=== PATIENT | female | born 1960 | race Caucasian/White ===

== ENCOUNTER 2016-11-20 13:49 | Inpatient (IN) ==
--- NOTE | 2016-11-20 14:01 | Emergency Department Note ---
Disposition Clinical Impression: Ventricular tachycardia Disposition: Admitted As Inpatient Condition: Good General Adult HPI - General Chief complaint: ED Arrhythmia/Palpitations Stated complaint: defibulator activated x 2 Time Seen by Provider: 11/20/16 13:54 Source: EMS - History of Present Illness Pain Scale: 1 - Related Data Home Medications Medication Instructions Recorded Confirmed Dulaglutide [Trulicity] 0.5 mg SQ SA 04/19/16 11/20/16 Metformin HCl [Metformin HCl ER] 1,000 mg PO BID 04/19/16 11/20/16 Aspirin [Lo-Dose Aspirin EC] 81 mg PO DAILY 05/03/16 11/20/16 Ferrous Sulfate [Iron] 325 mg PO DAILY 11/20/16 11/20/16 Previous Rx's Medication Instructions Recorded Furosemide [Lasix] 20 mg PO DAILY #30 tablet 05/09/16 Magnesium Oxide [Mag-Ox] 400 mg PO DAILY #30 tablet 05/09/16 Metoprolol XL (24 HR) Succ [Toprol 50 mg PO DAILY #30 tab.er.24h 05/09/16 Xl] Potassium Chloride [K-Tab ER] 10 meq PO DAILY #30 tablet.er 05/09/16 Amiodarone [Cordarone] 200 mg PO DAILY #7 tablet 09/19/16 Allergies Allergy/AdvReac Type Severity Reaction Status Date / Time No Known Allergies Allergy Verified 09/18/16 21:59 Past Medical History - Past Medical History Medical history: Reports: arthritis, diabetes, GERD, hyperlipidemia, hypertension, SVT, other Surgical history: Reports: cholecystectomy, hysterectomy, pacemaker/AICD, other Psychiatric history: Reports: no psych history PRODUCTION SUPERVISOR TRAINEE history: Reports: no PRODUCTION SUPERVISOR TRAINEE history - Social History Smoking Status: Never smoker Smokeless Tobacco Status: No Alcohol use: Reports: none Drug use: Reports: none Physical Exam - General General appearance: alert Course Vital Signs Temperature 98.0 F 11/20/16 13:53 Pulse Rate 63 11/20/16 13:53 Respiratory Rate 24 11/20/16 13:53 Blood Pressure 122/82 11/20/16 13:53 O2 Sat by Pulse Oximetry 97 11/20/16 13:53 Temperature 98 F 11/20/16 17:13 Pulse Rate 60 11/20/16 18:26 Respiratory Rate 16 11/20/16 17:13 Blood Pressure 118/71 11/20/16 18:26 O2 Sat by Pulse Oximetry 97 11/20/16 17:13 Oxygen Delivery Oxygen Delivery Nasal Cannula Medical Decision Making - Lab Data Result diagrams: 11/20/16 15:08 11/20/16 15:08 Lab Results 11/20/16 11/20/16 11/20/16 Range/Units 15:06 15:08 15:08 WBC 8.3 (4.3-11.1) K/mcL RBC 5.45 H (3.82-4.97) M/mcL Hgb 14.1 (11.5-15.4) g/dL Hct 44.8 (35.3-44.9) % MCV 82.2 L (83.0-100.0) fL MCH 25.9 L (28.0-33.3) pg MCHC 31.5 L (31.6-35.5) g/dL RDW 15.5 H (11.5-14.5) % Plt Count 198 (140-400) K/mcL MPV 11.9 (9.4-12.4) fL Immature Gran % 1.1 (0-4) % Seg Neutrophils % 70.7 % Lymphocytes % 17.7 % Monocytes % 7.2 % Eosinophils % 2.0 % Basophils % 1.3 % Neutrophils # 5.9 (1.6-8.9) K/mcL Lymphocytes # 1.5 (0.6-4.6) K/mcL Monocytes # 0.6 (0.0-1.3) K/mcL Eosinophils # 0.2 (0.0-0.6) K/mcL Basophils # 0.1 (0.0-0.2) K/mcL Sodium 141 (136-145) mEq/L Potassium 4.7 H (3.5-4.5) mEq/L Chloride 108 (98-109) mEq/L Carbon Dioxide 23 (19-29) mEq/L BUN 17 (7-20) mg/dL Creatinine 1.12 H (0.57-1.11) mg/dL Est GFR ( Amer) > 60 (> 60) Est GFR (Non-Af Amer) 50 L (> 60) BUN/Creatinine Ratio 15 (6-26) Glucose 137 H (70-99) mg/dL Calculated Osmolality 296 (280-300) Calcium 9.8 (8.6-10.8) mg/dL Magnesium (1.6-2.6) mg/dL Troponin I (0-0.03) ng/mL B-Natriuretic Peptide 891 H (0-100) pg/mL TSH 4.047 (0.350-4.840) mcIU/mL 11/20/16 11/20/16 Range/Units 15:08 15:08 WBC (4.3-11.1) K/mcL RBC (3.82-4.97) M/mcL Hgb (11.5-15.4) g/dL Hct (35.3-44.9) % MCV (83.0-100.0) fL MCH (28.0-33.3) pg MCHC (31.6-35.5) g/dL RDW (11.5-14.5) % Plt Count (140-400) K/mcL MPV (9.4-12.4) fL Immature Gran % (0-4) % Seg Neutrophils % % Lymphocytes % % Monocytes % % Eosinophils % % Basophils % % Neutrophils # (1.6-8.9) K/mcL Lymphocytes # (0.6-4.6) K/mcL Monocytes # (0.0-1.3) K/mcL Eosinophils # (0.0-0.6) K/mcL Basophils # (0.0-0.2) K/mcL Sodium (136-145) mEq/L Potassium (3.5-4.5) mEq/L Chloride (98-109) mEq/L Carbon Dioxide (19-29) mEq/L BUN (7-20) mg/dL Creatinine (0.57-1.11) mg/dL Est GFR ( Amer) (> 60) Est GFR (Non-Af Amer) (> 60) BUN/Creatinine Ratio (6-26) Glucose (70-99) mg/dL Calculated Osmolality (280-300) Calcium (8.6-10.8) mg/dL Magnesium 1.4 L (1.6-2.6) mg/dL Troponin I 0.03 (0-0.03) ng/mL B-Natriuretic Peptide (0-100) pg/mL TSH (0.350-4.840) mcIU/mL Critical Care Time Critical Care Time: Yes Total Critical Care Time: 30 Attestation: Patient presented after being cardioverted from her AICD. We did receive confirmation from her AICD manufacture that this was V. tach. She did have several runs of nonsustained wide complex tachycardia while on telemetry. This necessitated an amiodarone drip. Call placed to cardiology orthodontic technician Attestation Statement - Attestation Attestation: I examined this patient and my medical decision-making was reviewed with the TOOTH CUTTER/PA/Advanced Practice Nurse/Resident Physician. I agree with the documented findings, disposition and treatment plan as described except to the extent set forth below. [id number] time provided Patient presents by EMS after her AICD fired. She states she felt dizzy prior to this event. By she relates it has been firing increasing frequently recently. She appears distressed. ekg reviewed by me
--- NOTE | 2016-11-20 14:17 | Emergency Department Note ---
Disposition Clinical Impression: Ventricular tachycardia Disposition: Admitted As Inpatient Condition: Good Referrals: Lamonte Lassiter DO [Primary Care Provider] - Forms: ED Satisfaction Letter Arrhythmia/Palpitations HPI - General Chief Complaint: ED Arrhythmia/Palpitations Stated Complaint: defibulator activated x 2 Time Seen by Provider: 11/20/16 13:54 Source: EMS Nursing Notes Reviewed: Yes Vital Signs Reviewed: Yes - History of Present Illness HPI Narrative: 56-year-old female with a history of systolic heart failure, hypertension, type 2 diabetes who has a pacemaker/defibrillator presents to the emergency department after being defibrillated. On she reports being defibrillated twice. Yesterday she was sitting down, relaxing when she suddenly was defibrillated. She states since then she just has not felt right. She was again defibrillated this morning for a total of 4 times. She has felt generally weak with some exertional dyspnea over the last week. She does not have any chest pain or discomfort. Denies any associated nausea, vomiting or diaphoresis. Denies any abdominal pain. Denies any chest pain. Denies any new lower extremity swelling. She apparently spoke with her string laster who recommended she come to the emergency department for evaluation. She reports a history of ventricular fibrillation. - Related Data Home Medications Medication Instructions Recorded Confirmed Dulaglutide [Trulicity] 0.5 mg SQ SA 04/19/16 11/20/16 Metformin HCl [Metformin HCl ER] 1,000 mg PO BID 04/19/16 11/20/16 Aspirin [Lo-Dose Aspirin EC] 81 mg PO DAILY 05/03/16 11/20/16 Ferrous Sulfate [Iron] 325 mg PO DAILY 11/20/16 11/20/16 Previous Rx's Medication Instructions Recorded Furosemide [Lasix] 20 mg PO DAILY #30 tablet 05/09/16 Magnesium Oxide [Mag-Ox] 400 mg PO DAILY #30 tablet 05/09/16 Metoprolol XL (24 HR) Succ [Toprol 50 mg PO DAILY #30 tab.er.24h 05/09/16 Xl] Potassium Chloride [K-Tab ER] 10 meq PO DAILY #30 tablet.er 05/09/16 Amiodarone [Cordarone] 200 mg PO DAILY #7 tablet 09/19/16 Allergies Allergy/AdvReac Type Severity Reaction Status Date / Time No Known Allergies Allergy Verified 09/18/16 21:59 All systems ED: reviewed and negative except as stated. Constitutional: Denies: fever Cardiovascular: Reports: palpitations, dyspnea on exertion. Denies: chest pain Respiratory: Reports: dyspnea. Denies: cough Gastrointestinal: Denies: abdominal pain, nausea, vomiting Musculoskeletal: Denies: back pain, neck pain Neurological: Denies: headache, weakness, numbness Past Medical History - Past Medical History Medical history: Reports: arthritis, diabetes, GERD, hyperlipidemia, hypertension, SVT, other Surgical history: Reports: cholecystectomy, hysterectomy, pacemaker/AICD, other Psychiatric history: Reports: no psych history MEAL ROOM HAND history: Reports: no MEAL ROOM HAND history - Social History Smoking Status: Never smoker Smokeless Tobacco Status: No Alcohol use: Reports: none Drug use: Reports: none Physical Exam General: Well-appearing female, resting, probably in bed, talkative and appropriate Cardiovascular: Irregular rhythm. Systolic murmur. No clicks or gallops. S1, S2 Respiratory: Breath sounds clear bilaterally. No wheezing, rales or rhonchi. No resp distress Abdomen: Soft, nontender. Eyes: conjunctiva clear HENT: No oral mucosal lesions. Moist mucous membranes Neuro: Alert and oriented 3, no motor sensory deficits Musculoskeletal: No lower extremity edema bilaterally. No calf tenderness. Skin: No lesions. No diaphoresis. Normal turgor. Normal color Psych: Appropriate - General General appearance: alert Course Course Narrative: Presents after being defibrillated multiple times. We interrogated her pacemaker and I received a call from [place] and told me she had 2 episodes of ventricular tachycardia with a rate around 220 and was appropriately shocked with return of rhythm. In the emergency Department she is having frequent runs of wide complex tachycardia which I feel represents ventricular tachycardia. She slightly lightheaded. I paged the string laster pending. Patient will likely require amiodarone for V. tach. She already takes amiodarone and has been taking her medications. We spoke with the on-call string laster, Dr. Denise who is comfortable with starting the amiodarone drip. Since she is only taking amiodarone we will not load her. (It should be known that the bolus order was not canceled by myself and the patient received about 10 mL of amiodarone before we stopped and started a drip) After starting the amiodarone her rate decreased down into the 70s, her symptoms resolved and she had far less ectopy. We discussed with the on-call hospitalist, Dr. Anthony to excess for admission. Her troponin is not elevated. Chest x-ray clear. Vital Signs Temperature 98.0 F 11/20/16 13:53 Pulse Rate 63 11/20/16 13:53 Respiratory Rate 24 11/20/16 13:53 Blood Pressure 122/82 11/20/16 13:53 O2 Sat by Pulse Oximetry 97 11/20/16 13:53 Temperature 98.0 F 11/20/16 13:53 Pulse Rate 78 11/20/16 16:00 Respiratory Rate 16 11/20/16 16:00 Blood Pressure 131/92 11/20/16 16:00 O2 Sat by Pulse Oximetry 99 11/20/16 16:00 Oxygen Delivery Oxygen Delivery Nasal Cannula Arrhythmia/Palpitations - Lab Data Result diagrams: 11/20/16 15:08 11/20/16 15:08 Lab Results 11/20/16 11/20/16 11/20/16 Range/Units 15:08 15:08 15:08 WBC 8.3 (4.3-11.1) K/mcL RBC 5.45 H (3.82-4.97) M/mcL Hgb 14.1 (11.5-15.4) g/dL Hct 44.8 (35.3-44.9) % MCV 82.2 L (83.0-100.0) fL MCH 25.9 L (28.0-33.3) pg MCHC 31.5 L (31.6-35.5) g/dL RDW 15.5 H (11.5-14.5) % Plt Count 198 (140-400) K/mcL MPV 11.9 (9.4-12.4) fL Immature Gran % 1.1 (0-4) % Seg Neutrophils % 70.7 % Lymphocytes % 17.7 % Monocytes % 7.2 % Eosinophils % 2.0 % Basophils % 1.3 % Neutrophils # 5.9 (1.6-8.9) K/mcL Lymphocytes # 1.5 (0.6-4.6) K/mcL Monocytes # 0.6 (0.0-1.3) K/mcL Eosinophils # 0.2 (0.0-0.6) K/mcL Basophils # 0.1 (0.0-0.2) K/mcL Sodium 141 (136-145) mEq/L Potassium 4.7 H (3.5-4.5) mEq/L Chloride 108 (98-109) mEq/L Carbon Dioxide 23 (19-29) mEq/L BUN 17 (7-20) mg/dL Creatinine 1.12 H (0.57-1.11) mg/dL Est GFR ( Amer) > 60 (> 60) Est GFR (Non-Af Amer) 50 L (> 60) BUN/Creatinine Ratio 15 (6-26) Glucose 137 H (70-99) mg/dL Calculated Osmolality 296 (280-300) Calcium 9.8 (8.6-10.8) mg/dL Magnesium (1.6-2.6) mg/dL Troponin I 0.03 (0-0.03) ng/mL TSH 4.047 (0.350-4.840) mcIU/mL 11/20/16 Range/Units 15:08 WBC (4.3-11.1) K/mcL RBC (3.82-4.97) M/mcL Hgb (11.5-15.4) g/dL Hct (35.3-44.9) % MCV (83.0-100.0) fL MCH (28.0-33.3) pg MCHC (31.6-35.5) g/dL RDW (11.5-14.5) % Plt Count (140-400) K/mcL MPV (9.4-12.4) fL Immature Gran % (0-4) % Seg Neutrophils % % Lymphocytes % % Monocytes % % Eosinophils % % Basophils % % Neutrophils # (1.6-8.9) K/mcL Lymphocytes # (0.6-4.6) K/mcL Monocytes # (0.0-1.3) K/mcL Eosinophils # (0.0-0.6) K/mcL Basophils # (0.0-0.2) K/mcL Sodium (136-145) mEq/L Potassium (3.5-4.5) mEq/L Chloride (98-109) mEq/L Carbon Dioxide (19-29) mEq/L BUN (7-20) mg/dL Creatinine (0.57-1.11) mg/dL Est GFR ( Amer) (> 60) Est GFR (Non-Af Amer) (> 60) BUN/Creatinine Ratio (6-26) Glucose (70-99) mg/dL Calculated Osmolality (280-300) Calcium (8.6-10.8) mg/dL Magnesium 1.4 L (1.6-2.6) mg/dL Troponin I (0-0.03) ng/mL TSH (0.350-4.840) mcIU/mL - EKG Data EKG results narrative: EKG shows a biventricular paced rhythm with a rate of 85 bpm. She has frequent wide complex ectopic beats in between of the paced rhythm. Previous EKG shows similar pacing/QRS complexes but the frequent ectopy is new.
[2016-11-20] MEDS ORDERED: Amiodarone Premix 150 MG/100 ML BAG IVPB ONE (14:56)
[2016-11-20] MEDS ORDERED: Amiodarone Premix 360 MG/200 ML BAG IVC ONE ×3 (15:13→15:30)
[2016-11-20 15:17] LABS: Basophils # 0.1 K/mcL (0.0-0.2); Basophils % 1.3 %; Eosinophils # 0.2 K/mcL (0.0-0.6); Hematocrit 44.8 % (35.3-44.9); Hemoglobin 14.1 g/dL (11.5-15.4); Immature Granulocytes % 1.1 % (0-4); Lymphocytes # 1.5 K/mcL (0.6-4.6); Lymphocytes % 17.7 %; Mean Corpuscular HGB Conc 31.5 g/dL (31.6-35.5); Mean Corpuscular Hemoglobin 25.9 pg (28.0-33.3); Mean Corpuscular Volume 82.2 fL (83.0-100.0); Mean Platelet Volume 11.9 fL (9.4-12.4); Monocytes # 0.6 K/mcL (0.0-1.3); Monocytes % 7.2 %; Neutrophils # 5.9 K/mcL (1.6-8.9); Platelet Count 198 K/mcL (140-400); Red Blood Count 5.45 M/mcL (3.82-4.97); Red Cell Distribution Width 15.5 % (11.5-14.5); Segmented Neutrophils % 70.7 %
[2016-11-20 15:28] LABS: BUN/Creatinine Ratio 15 (6-26); Blood Urea Nitrogen 17 mg/dL (7-20); Calcium 9.8 mg/dL (8.6-10.8); Carbon Dioxide 23 mEq/L (19-29); Chloride 108 mEq/L (98-109); Glucose 137 mg/dL (70-99); Osmolality,Calculated 296 (280-300); Potassium 4.7 mEq/L (3.5-4.5); Sodium 141 mEq/L (136-145); eGFR For African Americans > 60 (> 60); eGFR For Non-African Americans 50 (> 60)
--- NOTE | 2016-11-20 15:28 | Cardiology History & Physical ---
<ChadHowardRachel L - Last Filed: 11/20/16 15:31> Date of Encounter: 11/20/16 Time of Encounter: 15:00 Assessment and Plan (1) Ventricular tachycardia Current Visit: Yes Status: Acute x2 ICD discharges appropriately for VT. Reports 1 ICD shock last week and nearly 1 shock every other week since Amiodarone dose decreased in September 2016. Increase betablocker to Toprol XL 50 mg in AM and 25 mg in PM. Check electrolytes with Mag. Recommend K >4.0 and Mag >2.0 Reload with IV Amiodarone gtt per protocol--1mg/min x18 hours and then 0.5 mg/ min thereafter. Recommend admission to nursing unit for close observation. Monitor telemetry closely. The patient/plan was discussed with Dr. Denise who agrees with plan as stated above. (2) Nonischemic cardiomyopathy Current Visit: No Status: Acute BiV-ICD implant in May 2016. Most recent LVEF assessment, 30-35% in July 2016. [facility] April 2016--mild, non-obstructive CAD. Appears euvolemic upon exam, mild non-pitting edema to LLE. Reports cold/URI symptoms over the past week. WBC normal. Continue betablocker. May consider addition of ACEi at discharge if BP will tolerate and kidney function stable. Strict I&O, daily weights, Na/Fluid restriction diet. (3) Hypertension Current Visit: Yes Status: Chronic Controlled now, will continue to monitor closely. Continue betablocker. Qualifiers: Hypertension type: essential hypertension Qualified Code(s): I10 - Essential (primary) hypertension History of Present Illness Chief complaint: ICD discharge HPI: Ms. Lopez is a 56 year old female with PMH significant for complete heart block, HTN, and non-ischemic cardiomyopathy s/p Bi-V ICD implant in May 2016 who presents with x2 ICD discharges over the past 24 hours--ICD shock occur typically with rest. Reports palpitations prior to ICD discharge. Reports an ICD discharge every other week since Amiodarone has been decreased to 200 mg daily in September 2016. She reports a 1 week history of URI/cold symptoms. Denies taking any OTC medications or herbal remedies. Denies any recent medication changes. Denies chest pain or discomfort. Device check completed per ED staff--was noted to be appropriately shocking for VT per device report. Recent CV testing includes: TTE 07/20/16: EF 30-35%, global hypokinesis, mild MR TTE 04/20/16: EF 20-25%, global hypokinesis LHC 04/21/16: mild non-obstructive CAD; 40% stenosis Diagonal and 20% mRCA. Past Med Surg Social Fam HX - Past Medical History Attestation: Yes The following information was validated with the patient. Source: patient, old records reviewed Medical history: arthritis, diabetes, GERD, hyperlipidemia, hypertension, SVT, other (Ventricular tachycardia, complete heart block) Psychiatric history: no psych history - Past Surgical History Surgical History: cholecystectomy, hysterectomy, other, AICD (BiV-ICD) - Social History Smoking Status: Never smoker Smokeless Tobacco Status: No Alcohol use: none Drug use: none - Family History Mother Living Status: Hx Family Cardiac Disorders: Yes (CHF, DM) Brother Living Status: Still Living Hx Family Cardiac Disorders: Yes (PCI in 60s) Father Living Status: Hx Family Cardiac Disorders: Yes (HTN) Hx Family Respiratory Disorders: Yes (COPD) Medications and Allergies Dulaglutide [Trulicity] 0.5 mg SQ SA 04/19/16 [History] Metformin HCl [Metformin HCl ER] 1,000 mg PO BID 04/19/16 [History] Aspirin [Lo-Dose Aspirin EC] 81 mg PO DAILY 05/03/16 [History] Furosemide [Lasix] 20 mg PO DAILY #30 tablet 05/09/16 [Rx] Magnesium Oxide [Mag-Ox] 400 mg PO DAILY #30 tablet 05/09/16 [Rx] Metoprolol XL (24 HR) Succ [Toprol Xl] 50 mg PO DAILY #30 tab.er.24h 05/09/16 [ Rx] Potassium Chloride [K-Tab ER] 10 meq PO DAILY #30 tablet.er 05/09/16 [Rx] Amiodarone [Cordarone] 200 mg PO DAILY #7 tablet 09/19/16 [Rx] Ferrous Sulfate [Iron] 325 mg PO DAILY 11/20/16 [History] Allergies No Known Allergies Allergy (Verified 09/18/16 21:59) All Systems Review: A 10-system review of systems was performed and is negative for pertinent findings except as documented above in the HPI. - Cardiovascular Cardiovascular: as per HPI Physical Examination Vital Signs, Last 4 Hours Temp Pulse Resp BP Pulse Ox 11/20/16 14:37 115 18 155/100 98 11/20/16 14:35 97 11/20/16 13:53 98.0 F 63 24 122/82 97 General: Conversant, Other (appears pale) HEENT: Atraumatic, Normocephaly Cardiac: Other (irregularly irregular) Lungs: Normal Breath Sounds Neuro: Alert and responsive Abdomen: Soft Skin: No rashes noted on visualized skin Musculoskeletal: No Chest Wall Tenderness Extremities: Other (mild LLE non-pitting edema. ) Results 11/20/16 15:08 11/20/16 15:08 Lab Results 11/20/16 15:08 WBC 8.3 Hgb 14.1 Hct 44.8 Plt Count 198 Impressions Chest X-Ray 11/20/16 13:58 IMPRESSION: No acute cardiopulmonary disease. D/ / Uriah Porter MD / Uriah Porter MD Interpreting Provider: Uriah Porter MD - Imaging and Cardiology Echo: report reviewed Cardiac cath: report reviewed Other Results: Frequent NSVT 3 beats max - EKG Interpretation EKG results cardiology: personally reviewed <Toan Denise - Last Filed: 11/23/16 08:59> Date of Encounter: 11/23/16 History of Present Illness HPI: Ms. Lopez is a 56 year old female All Systems Review: A 10-system review of systems was performed and is negative for pertinent findings except as documented above in the HPI. Physical Examination Vital Signs, Last 4 Hours Temp Pulse Resp BP Pulse Ox 11/23/16 07:42 97.8 F 71 18 103/70 96 Results 11/21/16 04:19 11/22/16 08:43 Lab Results 11/22/16 08:43 Sodium 138 Potassium 4.5 Chloride 106 Carbon Dioxide 23 BUN 19 Creatinine 1.21 H Glucose 152 H Calcium 8.9 Magnesium 2.0 - Attending Attestation I examined this patient and my medical decision-making was reviewed with the WINDER CONTORT OPERATOR/PA/Advanced Practice Nurse/Resident Physician. I agree with the documented findings, disposition and treatment plan.
[2016-11-20] MEDS: Amiodarone Premix 360 MG/200 ML BAG IVC SCH ×2 (15:38→21:29)
[2016-11-20] MEDS ORDERED: Magnesium Sulfate 1 GM in D5% in Water 100 ML IVPB ONE ×2 (15:39→21:00)
[2016-11-20 15:50] LABS: Thyroid Stimulating Hormone 4.047 mcIU/mL (0.350-4.840)
[2016-11-20] MEDS ORDERED: Naloxone 0.4 MG/ML INJ IVP PRN (15:50)
[2016-11-20] MEDS ORDERED: Ondansetron 4 MG/2 ML VIAL IVP PRN (15:50)
[2016-11-20] MEDS ORDERED: Acetaminophen 325 MG TABLET PO PRN (15:50)
[2016-11-20] MEDS: *HR* Heparin 5,000 UNIT/ML VIAL SQ SCH (21:20)
[2016-11-20] MEDS: Metoprolol XL (24 HR) Succ 25 MG TAB.ER.24H PO SCH (21:21)
--- NOTE | 2016-11-21 00:25 | Event Note ---
Date of Encounter: 11/20/16 Time of Encounter: 20:00 [facility] to [facility]ology. Cardiology evaluated the patient in the emergency department and decided to directly admit the patient to their service. I have discussed our potential involvement in this case with Dr Denise and given Ms. Lopez's paucity of medical problems our consultation was not requested at this time. We would be happy to formally evaluate Ms. Lopez if clinical circumstances require it.
[2016-11-21 05:08] LABS: Basophils # 0.1 K/mcL (0.0-0.2); Basophils % 1.4 %; Eosinophils # 0.3 K/mcL (0.0-0.6); Eosinophils % 3.9 %; Hematocrit 39.3 % (35.3-44.9); Immature Granulocytes % 0.8 % (0-4); Lymphocytes % 25.5 %; Mean Corpuscular HGB Conc 31.8 g/dL (31.6-35.5); Mean Corpuscular Hemoglobin 26.3 pg (28.0-33.3); Mean Corpuscular Volume 82.6 fL (83.0-100.0); Mean Platelet Volume 13.2 fL (9.4-12.4); Monocytes # 0.7 K/mcL (0.0-1.3); Monocytes % 8.5 %; Neutrophils # 4.6 K/mcL (1.6-8.9); Platelet Count 138 K/mcL (140-400); Red Blood Count 4.76 M/mcL (3.82-4.97); Red Cell Distribution Width 15.5 % (11.5-14.5); Segmented Neutrophils % 59.9 %
[2016-11-21 05:11] LABS: Alanine Aminotransferase 14 Units/L (0-55); Albumin/Globulin Ratio 1.1 (1.1-2.2); Alkaline Phosphatase 112 Units/L (38-126); Aspartate Amino Transferase 18 Units/L (5-34); BUN/Creatinine Ratio 15 (6-26); Bilirubin,Total 0.4 mg/dL (0.2-1.2); Blood Urea Nitrogen 16 mg/dL (7-20); Calcium 8.8 mg/dL (8.6-10.8); Carbon Dioxide 21 mEq/L (19-29); Chloride 108 mEq/L (98-109); Globulin 2.7 g/dL (2.4-3.5); Glucose 193 mg/dL (70-99); Osmolality,Calculated 298 (280-300); Potassium 4.1 mEq/L (3.5-4.5); Sodium 141 mEq/L (136-145); Total Protein 5.7 g/dL (6.0-8.3); eGFR For African Americans > 60 (> 60); eGFR For Non-African Americans 53 (> 60)
[2016-11-21 05:33] LABS: Hemoglobin 12.5 g/dL (11.5-15.4)
[2016-11-21] MEDS: *HR* Heparin 5,000 UNIT/ML VIAL SQ SCH ×2 (06:05→17:00)
[2016-11-21] MEDS ORDERED: Furosemide 20 MG TABLET PO PRN (07:18)
[2016-11-21 07:49] LABS: Magnesium 1.6 mg/dL (1.6-2.6)
[2016-11-21] MEDS: Magnesium Oxide 400 MG TABLET PO SCH (07:57)
[2016-11-21] MEDS: *HR* Metformin 500 MG TABLET PO SCH ×2 (07:57→21:25)
[2016-11-21] MEDS: Aspirin Enteric Coated 81 MG Tablet PO SCH (07:57)
[2016-11-21] MEDS: Metoprolol XL (24 HR) Succ 50 MG TAB.ER.24H PO SCH (07:57)
--- NOTE | 2016-11-21 08:51 | Cardiology Progress Note ---
Date of Encounter: 11/21/16 Time of Encounter: 08:00 Assessment and Plan (1) Ventricular tachycardia Current Visit: Yes Status: Acute x2 ICD discharges appropriately for VT. Reports 1 ICD shock last week and nearly 1 shock every other week since Amiodarone dose decreased in September 2016. Increase betablocker to Toprol XL 50 mg in AM and 25 mg in PM. Recommend K >4.0 and Mag >2.0. Replace Mag today. Continue amiodarone 0.5mg/min. Continue to monitor. (2) Nonischemic cardiomyopathy Current Visit: Yes Status: Acute BiV-ICD implant in May 2016. Most recent LVEF assessment, 30-35% in July 2016. [facility] April 2016--mild, non-obstructive CAD. Appears euvolemic upon exam, mild non-pitting edema to LLE. Reports cold/URI symptoms over the past week. WBC normal. Continue betablocker. May consider addition of ACEi at discharge if BP will tolerate and kidney function stable. Strict I&O, daily weights, Na/Fluid restriction diet. (3) Hypertension Current Visit: Yes Status: Chronic Controlled now, will continue to monitor closely. Continue betablocker. Qualifiers: Hypertension type: essential hypertension Qualified Code(s): I10 - Essential (primary) hypertension Discussion w patient/family: The assessment and plan as outlined above was discussed with the patient and/or family members who expressed understanding and agreement. All questions were answered. Thank you for involving us in the care of your patient. Please call with any questions. The patient will be discussed and reviewed with Dr. Denise; changes to be made accordingly. Subjective Principal diagnosis: ICD shock Interval history: Seen and examined--no further shocks or events since admission. Discussed plan with patient. Objective Vital Signs, Last 4 Hours Pulse Resp BP Pulse Ox 11/21/16 06:08 60 16 105/79 97 11/21/16 05:00 59 14 87/56 96 General: Conversant, No Apparent Distress HEENT: Atraumatic, Normocephaly, Mucus Membranes Moist Cardiac: Other (irreguarly irregular) Neuro: Alert and responsive Abdomen: Soft Skin: No rashes noted on visualized skin Musculoskeletal: No Chest Wall Tenderness Extremities: No Edema, Normal Pulses Results 11/21/16 04:19 11/21/16 04:19 Lab Results 11/21/16 11/21/16 04:19 04:19 WBC 7.7 Hgb 12.5 D Hct 39.3 Plt Count 138 L Sodium 141 Potassium 4.1 Chloride 108 Carbon Dioxide 21 BUN 16 Creatinine 1.07 Glucose 193 H Calcium 8.8 Magnesium 1.6 Total Bilirubin 0.4 AST 18 ALT 14 Alkaline Phosphatase 112 Active Medications Acetaminophen (Tylenol) 650 mg PO Q6HR PRN PRN Reason: Mild Pain (1-3) Stop: 05/22/17 15:51 Aspirin (Aspirin Ec) 81 mg PO DAILY [facility] Stop: 05/23/17 09:01 Last Admin: 11/21/16 07:57 Dose: 81 mg Ferrous Sulfate (Ferrous Sulfate) 325 mg PO DAILY [facility] Stop: 05/23/17 09:01 Last Admin: 11/21/16 07:57 Dose: 325 mg Furosemide (Lasix) 20 mg PO DAILY PRN PRN Reason: increased swelling Stop: 05/23/17 09:01 Heparin Sodium (Porcine) (Heparin) 5,000 unit SQ Q12HR [facility] Stop: 05/22/17 18:01 Last Admin: 11/21/16 06:05 Dose: 5,000 unit Amiodarone HCl/Dextrose (Amiodarone 360mg/200ml Drip Premix) 360 mg in 200 mls @ 16.667 mls/hr IVC CONT JAMIE PRN Reason: 0.5 MG/MIN Stop: 05/22/17 15:31 Last Infusion: 11/21/16 07:58 Dose: 0.5 mg/min, 16.667 mls/hr Magnesium Oxide (Mag-Ox) 400 mg PO DAILY [facility] PRN Reason: Protocol Stop: 05/23/17 09:01 Last Admin: 11/21/16 07:57 Dose: 400 mg Metformin HCl (Glucophage) 1,000 mg PO BID [facility] Stop: 05/23/17 09:01 Last Admin: 11/21/16 07:57 Dose: 1,000 mg Metoprolol Succinate (Toprol Xl) 50 mg PO DAILY [facility] Stop: 05/23/17 09:01 Last Admin: 11/21/16 07:57 Dose: 50 mg Metoprolol Succinate (Toprol Xl) 25 mg PO HS [facility] Stop: 05/22/17 21:01 Last Admin: 11/20/16 21:21 Dose: 25 mg Naloxone HCl (Narcan) 0.4 mg IVP Q2MIN PRN PRN Reason: Opioid Reversal Stop: 05/22/17 15:51 Ondansetron HCl (Zofran) 4 mg IVP Q8HR PRN PRN Reason: Nausea And Vomiting Stop: 05/22/17 15:51 Pharmacy Profile Note (Patient Taking Own Medication) 0 each SQ SA JAMIE Stop: 05/29/17 07:19 Potassium Chloride (Potassium Chloride) 10 meq PO DAILY PRN PRN Reason: prn with lasix Stop: 05/23/17 09:01 - Imaging and Cardiology Echo: report reviewed Cardiac cath: report reviewed Other Results: Telemetry reviewed. - EKG Interpretation EKG results cardiology: personally reviewed Consult Discharge Plan - Plan Referrals: Lamonte Lassiter DO [Primary Care Provider] -
[2016-11-21] MEDS ORDERED: Magnesium Sulfate 2 GM in D5% in Water 100 ML IVPB ONE (09:13)
[2016-11-21] MEDS: Amiodarone Premix 360 MG/200 ML BAG IVC SCH ×2 (10:34→21:28)
[2016-11-21] MEDS: Metoprolol XL (24 HR) Succ 25 MG TAB.ER.24H PO SCH (21:25)
[2016-11-22] MEDS: *HR* Heparin 5,000 UNIT/ML VIAL SQ SCH ×2 (06:09→17:55)
[2016-11-22] MEDS: Magnesium Oxide 400 MG TABLET PO SCH ×2 (08:39→21:12)
[2016-11-22] MEDS: *HR* Metformin 500 MG TABLET PO SCH ×2 (08:39→21:16)
[2016-11-22] MEDS: Aspirin Enteric Coated 81 MG Tablet PO SCH (08:39)
[2016-11-22] MEDS: Metoprolol XL (24 HR) Succ 50 MG TAB.ER.24H PO SCH (08:39)
[2016-11-22 09:06] LABS: Calcium 8.9 mg/dL (8.6-10.8); Potassium 4.5 mEq/L (3.5-4.5)
[2016-11-22] MEDS: Amiodarone Premix 360 MG/200 ML BAG IVC SCH ×2 (10:03→21:12)
--- NOTE | 2016-11-22 10:11 | Cardiology Progress Note ---
Date of Encounter: 11/22/16 Time of Encounter: 09:40 Assessment and Plan (1) Ventricular tachycardia Current Visit: Yes Status: Acute x2 ICD discharges appropriately for VT. Reports 1 ICD shock last week and nearly 1 shock every other week since Amiodarone dose decreased in September 2016. Increase betablocker to Toprol XL 50 mg in AM and 25 mg in PM. Recommend K >4.0 and Mag >2.0. Continue amiodarone 0.5mg/min. Recheck TTE today. Will add aldactone. Prior CV testing includes: TTE 07/20/16: EF 30-35%, global hypokinesis, mild MR TTE 04/20/16: EF 20-25%, global hypokinesis C 04/21/16: mild non-obstructive CAD; 40% stenosis Diagonal and 20% mRCA. (2) Nonischemic cardiomyopathy Current Visit: Yes Status: Acute BiV-ICD implant in May 2016. Most recent LVEF assessment, 30-35% in July 2016. [facility] April 2016--mild, non-obstructive CAD. Appears euvolemic upon exam, mild non-pitting edema to LLE. Reports cold/URI symptoms over the past week. WBC normal. Continue betablocker. May consider addition of ACEi at discharge if BP will tolerate and kidney function stable. Strict I&O, daily weights, Na/Fluid restriction diet. (3) Hypertension Current Visit: Yes Status: Chronic Controlled now, will continue to monitor closely. Continue betablocker. Qualifiers: Hypertension type: essential hypertension Qualified Code(s): I10 - Essential (primary) hypertension Discussion w patient/family: The assessment and plan as outlined above was discussed with the patient and/or family members who expressed understanding and agreement. All questions were answered. Thank you for involving us in the care of your patient. Please call with any questions. The patient will be discussed and reviewed with Dr. Harding; changes to be made accordingly. Subjective Principal diagnosis: ICD shock Interval history: Seen and examined with Dr. Harding Denies recurrent ICD shocks since admission. Reports few brief episodes of shortness of breath overnight, lasted only seconds. Denies chest pain or discomfort. Objective Vital Signs, Last 4 Hours Temp Pulse Resp BP Pulse Ox 11/22/16 08:42 60 11/22/16 07:19 97.8 F 73 16 106/79 96 General: Conversant, No Apparent Distress, Other (pale) HEENT: Atraumatic, Normocephaly Cardiac: Reg Rate and Rhythm, Normal S1 and S2 Lungs: Normal Breath Sounds Neuro: Alert and responsive Abdomen: Soft Skin: No rashes noted on visualized skin Musculoskeletal: No Chest Wall Tenderness Extremities: No Edema, Normal Pulses Results 11/21/16 04:19 11/22/16 08:43 Lab Results 11/22/16 08:43 Sodium 138 Potassium 4.5 Chloride 106 Carbon Dioxide 23 BUN 19 Creatinine 1.21 H Glucose 152 H Calcium 8.9 Magnesium 2.0 Active Medications Acetaminophen (Tylenol) 650 mg PO Q6HR PRN PRN Reason: Mild Pain (1-3) Stop: 05/22/17 15:51 Aspirin (Aspirin Ec) 81 mg PO DAILY [facility] Stop: 05/23/17 09:01 Last Admin: 11/22/16 08:39 Dose: 81 mg Ferrous Sulfate (Ferrous Sulfate) 325 mg PO DAILY [facility] Stop: 05/23/17 09:01 Last Admin: 11/22/16 08:39 Dose: 325 mg Furosemide (Lasix) 20 mg PO DAILY PRN PRN Reason: increased swelling Stop: 05/23/17 09:01 Heparin Sodium (Porcine) (Heparin) 5,000 unit SQ Q12HR [facility] Stop: 05/22/17 18:01 Last Admin: 11/22/16 06:09 Dose: 5,000 unit Amiodarone HCl/Dextrose (Amiodarone 360mg/200ml Drip Premix) 360 mg in 200 mls @ 16.667 mls/hr IVC CONT [facility] PRN Reason: 0.5 MG/MIN Stop: 05/22/17 15:31 Last Admin: 11/22/16 10:03 Dose: 0.5 mg/min, 16.667 mls/hr Magnesium Oxide (Mag-Ox) 400 mg PO BID [facility] PRN Reason: Protocol Stop: 05/24/17 21:01 Metformin HCl (Glucophage) 1,000 mg PO BID [facility] Stop: 05/23/17 09:01 Last Admin: 11/22/16 08:39 Dose: 1,000 mg Metoprolol Succinate (Toprol Xl) 50 mg PO DAILY [facility] Stop: 05/23/17 09:01 Last Admin: 11/22/16 08:39 Dose: 50 mg Metoprolol Succinate (Toprol Xl) 25 mg PO HS JAMIE Stop: 05/22/17 21:01 Last Admin: 11/21/16 21:25 Dose: 25 mg Naloxone HCl (Narcan) 0.4 mg IVP Q2MIN PRN PRN Reason: Opioid Reversal Stop: 05/22/17 15:51 Ondansetron HCl (Zofran) 4 mg IVP Q8HR PRN PRN Reason: Nausea And Vomiting Stop: 05/22/17 15:51 Pharmacy Profile Note (Patient Taking Own Medication) 0 each SQ SA JAMIE Stop: 05/29/17 07:19 Potassium Chloride (Potassium Chloride) 10 meq PO DAILY PRN PRN Reason: prn with lasix Stop: 05/23/17 09:01 - Imaging and Cardiology Echo: pending, report reviewed Cardiac cath: report reviewed Other Results: Telemetry reviewed; avg HR=63 paced. - EKG Interpretation EKG results cardiology: personally reviewed Consult Discharge Plan - Plan Referrals: aLmonte Lassiter DO [Primary Care Provider] -
[2016-11-22] MEDS: Spironolactone 25 MG TABLET PO SCH (13:06)
[2016-11-22] MEDS: Metoprolol XL (24 HR) Succ 25 MG TAB.ER.24H PO SCH (21:12)
[2016-11-23] MEDS: *HR* Heparin 5,000 UNIT/ML VIAL SQ SCH ×2 (04:43→17:49)
--- NOTE | 2016-11-23 06:14 | Electrocardiograph Report ---
[address] [address] Test Date: 2016-11-20 Pat Name: Cecy Lopez Department: 104 Room: 2N04 Gender: F [employer]: : 1960 Requested By: Eder Owens Order Number: [id number] Reading MD: Joe Jones MD Measurements Intervals [place] Rate: 85 P: MI: 0 QRS: -89 QRSD: 136 T: 81 QT: 392 QTc: 435 Interpretive Statements DEMAND AV PACING WITH INTERPOLATED PVCS OR ABERRANTLY CONDUCTED COMPLEXES Electronically Signed On 11-23-2016 6:13:10 EST by Joe Jones MD
[2016-11-23] MEDS: Spironolactone 25 MG TABLET PO SCH (08:52)
[2016-11-23] MEDS: Aspirin Enteric Coated 81 MG Tablet PO SCH (08:52)
[2016-11-23] MEDS: Amiodarone Premix 360 MG/200 ML BAG IVC SCH (08:52)
[2016-11-23] MEDS: Magnesium Oxide 400 MG TABLET PO SCH ×2 (08:53→20:26)
[2016-11-23] MEDS: *HR* Metformin 500 MG TABLET PO SCH ×2 (08:53→20:27)
[2016-11-23] MEDS: Metoprolol XL (24 HR) Succ 50 MG TAB.ER.24H PO SCH ×2 (08:53→20:26)
--- NOTE | 2016-11-23 10:51 | ECHO - Doppler Report ---
Echocardiogram Name: Cecy Lopez Date of Study: 11/22/2016 Date: 1960 Ht: 65.0 in Medical Record#: [id number] Age: 56 Wt: 156.0 lb Gender: Female BSA: 1.78 Order #: [id number] Location: [facility] Room #: 2N04 Reading Physician: Tona Denise DO Screen Vent Binder: Tisha Patel RDCS Ordering Physician: Rachel Bonilla CNP Primary Physician: Lamonte Lassiter DO Indications: Ventricular Tachycardia Impressions: LVEF 20%. Severe global LV systolic dysfunction. Regional variations were not well visualized. Left ventricle is mildly dilated. There is evidence of mild diastolic dysfunction of the left ventricle. Normal right ventricular size and function. Mild-moderate mitral regurgitation. Moderate tricuspid regurgitation. TR gradient may be underestimated. Unable to estimate RVSP. Left Ventricular Wall Motion: Rest Echo Findings The apex, apical inferior, mid inferior, basal inferior, apical anterior, mid anterior, basal anterior, apical septal, mid inferior septal, basal inferior septal, apical lateral, mid anterior lateral, basal anterior lateral, mid anterior septal, mid inferior lateral, basal anterior septal and basal inferior lateral avina were hypokinetic. Findings: Study Quality * Technically adequate exam. Left Atrium * Moderately dilated left atrium. Mitral Valve * Normal mitral valve structure. * No mitral stenosis. * Mild-moderate mitral regurgitation. ECG Findings * Sinus bradycardia. Intermittent pacing. Left Ventricle * LVEF 20%. * Mildly dilated left ventricle. * Mild left ventricular diastolic dysfunction. Tricuspid Valve * Tricuspid valve not well visualized. * Moderate tricuspid regurgitation. * TR gradient may be underestimated. Aortic Valve * Trileaflet aortic valve. * Normal aortic valve structure. * No aortic stenosis. * Trace aortic regurgitation. Pulmonic Valve * Pulmonic valve is not well visualized. * No pulmonic stenosis. * No pulmonic regurgitation. Pulmonary Artery * Pulmonary artery not well visualized. Right Atrium * Normal right atrial size. Right Ventricle * RV is normal in size with normal function. Interatrial Septum * Interatrial septum not well evaluated. IVC * The IVC is not well evaluated. Pericardium * There is no pericardial effusion present. Aorta * Normally sized aortic root. History Hypertension Diabetes Hypercholesteremia Family History of CAD Congestive Heart Failure Pacer/ICD Implant 07/20/2016 a Previous Echo was performed. Measurements: BP: 100/ 67 2D Normal Values IVSd: .74 cm 0.6 - 1.0 cm LVIDd: 5.60 cm 3.7 - 5.6 cm LVPWd: .89 cm 0.6 - 1.1 cm LVIDs: 5.43 cm 1.5 - 3.6 cm AO: 2.60 cm < 4.0 cm LA: 3.90 cm 2.0 - 4.0cm %FS: 9.20 cm >25 % LVOT Diam: 2.20 cm LA volume: 55 Mitral Valve Peak E:.55 m/sec Peak A:.69 m/sec E/A Ratio:0.8 Peak E' Lat Simone:4.1 cm/s Peak E' Med Simone:3.73 cm/s E/E' Lat Ratio:13.5 E/E' Med Ratio:14.8 Aortic Valve AI pressure Half-time: 516.00 msec Tricuspid Valve TV Regurg Peak Grad: 25.00mmHg TV Regurg Peak Simone: 2.48m/sec Updated by Tona Denise on 11/23/2016 10:44:59 AM electronically signed on 11/23/2016 10:46:55 AM with status of Final Wall Motion Nunes: 1=Normal, 2=Hypokinesis, 3=Akinesis, 4=Dyskinesis, 5=Aneurysmal, 6=Hyperkinetic, X=Not Visualized (Blank)=Missing
--- NOTE | 2016-11-23 11:56 | Cardiology Progress Note ---
Date of Encounter: 11/23/16 Time of Encounter: 11:00 Assessment and Plan (1) Ventricular tachycardia Current Visit: Yes Status: Acute x2 ICD discharges appropriately for VT. Reports 1 ICD shock last week and nearly 1 shock every other week since Amiodarone dose decreased in September 2016. Increase betablocker to Toprol XL 50 mg BID. Recommend K >4.0 and Mag >2.0. Will stop amiodarone gtt, will give 400 mg BID today, and then 400 mg daily starting tomororw. Continue aldactone. Reviewed TTE images with Dr. Harding; EF 10%, reduced from prior exam. Anticipate outpatient referral to [facility]. If symptoms continue to be stable, anticipate discharge in AM. Encouraged to ambulate in hallways. Prior CV testing includes: TTE 07/20/16: EF 30-35%, global hypokinesis, mild MR TTE 04/20/16: EF 20-25%, global hypokinesis [facility] 04/21/16: mild non-obstructive CAD; 40% stenosis Diagonal and 20% mRCA. (2) Nonischemic cardiomyopathy Current Visit: Yes Status: Acute BiV-ICD implant in May 2016. Most recent LVEF assessment, 30-35% in July 2016. [facility] April 2016--mild, non-obstructive CAD. Appears euvolemic upon exam, mild non-pitting edema to LLE. Reports cold/URI symptoms over the past week. WBC normal. Continue betablocker. May consider addition of ACEi at discharge if BP will tolerate and kidney function stable. Strict I&O, daily weights, Na/Fluid restriction diet. (3) Hypertension Current Visit: Yes Status: Chronic Controlled now, will continue to monitor closely. Continue betablocker. Qualifiers: Hypertension type: essential hypertension Qualified Code(s): I10 - Essential (primary) hypertension Discussion w patient/family: The assessment and plan as outlined above was discussed with the patient and/or family members who expressed understanding and agreement. All questions were answered. Thank you for involving us in the care of your patient. Please call with any questions. The patient will be discussed and reviewed with Dr. Harding; changes to be made accordingly. Subjective Principal diagnosis: ICD shock Interval history: Seen and examined with Dr. Harding Denies recurrent ICD shocks since admission. Reports few brief episodes of shortness of breath overnight, lasted only seconds. Denies chest pain or discomfort. Long discussion with patient today regarding plan. Objective Vital Signs, Last 4 Hours Temp Pulse Resp BP Pulse Ox 11/23/16 11:21 98.0 F 68 18 123/90 99 11/23/16 11:13 63 11/23/16 08:59 59 General: Conversant, No Apparent Distress HEENT: Atraumatic, Normocephaly, Mucus Membranes Moist Cardiac: Reg Rate and Rhythm, Normal S1 and S2 Lungs: Normal Breath Sounds Neuro: Alert and responsive Abdomen: Soft Skin: No rashes noted on visualized skin Musculoskeletal: No Chest Wall Tenderness Extremities: No Edema, Normal Pulses Results 11/21/16 04:19 11/22/16 08:43 - Imaging and Cardiology Echo: report reviewed Other Results: Telemetry reviewed; no NSVT noted. - EKG Interpretation EKG results cardiology: personally reviewed Consult Discharge Plan - Plan Referrals: Lamonte Lassiter DO [Primary Care Provider] - 11/30/16 10:00 am Rachel Bonilla, TANK COOPER [Partnered Physician] - (they make their own appointments now, will either call us or call patient at home)
[2016-11-23] MEDS: *HR* Amiodarone 200 MG TABLET PO SCH ×2 (12:06→20:26)
[2016-11-24 05:04] LABS: BUN/Creatinine Ratio 19 (6-26); Blood Urea Nitrogen 21 mg/dL (7-20); Calcium 9.1 mg/dL (8.6-10.8); Carbon Dioxide 22 mEq/L (19-29); Chloride 107 mEq/L (98-109); Glucose 134 mg/dL (70-99); Magnesium 1.5 mg/dL (1.6-2.6); Osmolality,Calculated 289 (280-300); Potassium 4.7 mEq/L (3.5-4.5); Sodium 137 mEq/L (136-145); eGFR For African Americans > 60 (> 60); eGFR For Non-African Americans 50 (> 60)
[2016-11-24] MEDS: *HR* Heparin 5,000 UNIT/ML VIAL SQ SCH (06:29)
[2016-11-24 07:25] VITALS: BP 106/75
[2016-11-24] MEDS ORDERED: Magnesium Sulfate 2 GM in D5% in Water 100 ML IVPB ONE (08:19)
[2016-11-24] MEDS: *HR* Metformin 500 MG TABLET PO SCH (08:22)
[2016-11-24] MEDS: Magnesium Oxide 400 MG TABLET PO SCH (08:22)
[2016-11-24] MEDS: Metoprolol XL (24 HR) Succ 50 MG TAB.ER.24H PO SCH (08:22)
[2016-11-24] MEDS: Spironolactone 25 MG TABLET PO SCH (08:22)
[2016-11-24] MEDS: Aspirin Enteric Coated 81 MG Tablet PO SCH (08:22)
--- NOTE | 2016-11-24 09:49 | Discharge Summary ---
Date of Encounter: 11/24/16 Time of Encounter: 08:00 - Discharge Diagnosis (1) Ventricular tachycardia Priority: Primary Status: Acute (2) Nonischemic cardiomyopathy Priority: Primary Status: Acute (3) Hypertension Priority: Secondary Status: Chronic Qualifiers: Hypertension type: essential hypertension Qualified Code(s): I10 - Essential (primary) hypertension - Discharge Medications Prescriptions: Amiodarone [Cordarone] 400 mg PO DAILY #30 tablet Magnesium Oxide [Mag-Ox] 400 mg PO BID #30 tablet Metoprolol XL (24 HR) Succ [Toprol Xl] 50 mg PO BID #60 tab.er.24h Spironolactone [Aldactone] 12.5 mg PO DAILY #30 tablet Home Medications: Dulaglutide [Trulicity] 0.5 mg SQ SA 04/19/16 [History] Metformin HCl [Metformin HCl ER] 1,000 mg PO BID 04/19/16 [History] Aspirin [Lo-Dose Aspirin EC] 81 mg PO DAILY 05/03/16 [History] Furosemide [Lasix] 20 mg PO DAILY #30 tablet 05/09/16 [Rx] Potassium Chloride [K-Tab ER] 10 meq PO DAILY #30 tablet.er 05/09/16 [Rx] Ferrous Sulfate [Iron] 325 mg PO DAILY 11/20/16 [History] Amiodarone [Cordarone] 400 mg PO DAILY #30 tablet 11/24/16 [Rx] Magnesium Oxide [Mag-Ox] 400 mg PO BID #30 tablet 11/24/16 [Rx] Metoprolol XL (24 HR) Succ [Toprol Xl] 50 mg PO BID #60 tab.er.24h 11/24/16 [Rx] Spironolactone [Aldactone] 12.5 mg PO DAILY #30 tablet 11/24/16 [Rx] Allergies/Adverse Reactions: Allergies No Known Allergies Allergy (Verified 09/18/16 21:59) Procedures/tests Complete & Pending: Procedures Performed prior 72 hours Category Date Time Status EV echocardiogram Routine Y 11/22/16 10:06 Completed Date of admission: 11/20/16 16:20 Primary care physician: Lamonte Lassiter Discharging clinician: Rachel Bonilla Anticipated date of discharge: 11/24/16 - Patient Status Disposition: Home, Self-Care Condition: Good Functional capacity at discharge: independent ambulation Overall status at discharge: patient is progressing back to baseline - Discharge Instructions Instructions: Spironolactone (By mouth), Amiodarone (By mouth), Heart Failure ( DC) Follow Up With: Lamonte Lassiter DO [Primary Care Provider] - 11/30/16 10:00 am Rachel Bonilla, SAJAN [Partnered Physician] - () Nikolas Simon DO [Partnered Physician] - 12/02/16 12:15 pm - Diet and Activity Activity: resume usual activities as tolerated, other (No driving until seen by Cardiology at follow-up. ) Diet: low salt diet, other (2L fluid restriction) - Hospital Course Hospital course: Ms. Lopez is a 56 year old female who presented to the ED with recurrent ICD shocks; device check showed appropriate shock for ICD. Reported increase in ICD discharge since Amiodarone was decreased as outpatient to 200 mg daily. She was re-loaded with IV amiodarone. She will be discharged home on 400 mg oral amiodarone daily. Electrolytes were repleted. Betablocker was increased to 50 mg Toprol XL BID and was started on low dose of aldactone for worsening heart failure. Mag ox increased to 400 mg BID d/t chronic hypomagnesia (? s/p gastric bypass). TTE was repeated and showed a LVEF of 20%, prior 30-35%. She [facility] likely [facility]. She will obtain BMP and mag in 1 week as outpatient. She will follow-up with Dr. Simon on 12/02/16 at 12:15 PM. She has been up and ambulating in room and hallways without symptoms or recurrent ICD shocks. All questions and concerns were addressed; she is being prepped for discharge to home in stable condition. - Time Spent with Patient Total time spent providing and/or coordinating discharge services: Greater than 30 minutes Specific discharge activities: Increase activity as tolerated. No driving until seen by Cardiology as outpatient. Physical Examination Vital Signs, Last 4 Hours Temp Pulse Resp BP Pulse Ox 11/24/16 07:20 98.0 F 65 18 106/75 96 General: Conversant, No Apparent Distress HEENT: Atraumatic, Normocephaly, Mucus Membranes Moist Cardiac: Reg Rate and Rhythm, Normal S1 and S2 Lungs: Normal Breath Sounds Neuro: Alert and responsive Abdomen: Soft Skin: No rashes noted on visualized skin Musculoskeletal: No Chest Wall Tenderness Extremities: No Edema, Normal Pulses
[2016-11-24] MEDS ORDERED: *HR* Amiodarone 200 MG TABLET PO SCH (10:00)
[2016-11-27] MEDS ORDERED: DULAGLUTIDE 0.5 MG SQ SCH (07:18)
== END 2016-11-24 10:42 | disposition home or self-care (01) | DRG 309 ==
LOC: EMEROO 13:49 → 2NNU 16:20
PROVIDERS: ADMIT Internal Medicine; ATTEND Internal Medicine

== ENCOUNTER 2017-05-27 08:57 | Inpatient (IN) ==
--- NOTE | 2017-05-27 09:55 | Emergency Department Note ---
Addendum entered and electronically signed by Glenna Higginbotham DO 05/27/17 14:51 : During ED stay, patient had multiple runs of v-tach non-sustained and one sustained that her defib shocked back into sinus rhythm. The interrogator showed V-tach as the cause this morning and Tuesday. Original Note: Disposition Clinical Impression: V-tach UTI (urinary tract infection) Qualifiers: Urinary tract infection type: site unspecified Hematuria presence: without hematuria Qualified Code(s): N39.0 - Urinary tract infection, site not specified Disposition: Admitted As Inpatient Condition: Good Referrals: Lamonte Lassiter DO [Primary Care Provider] - 06/07/17 10:30 am Arrhythmia/Palpitations HPI - General Chief Complaint: ED Arrhythmia/Palpitations Stated Complaint: defib fired-this am and 05/22/17 Time Seen by Provider: 05/27/17 09:16 Source: patient Limitations: no limitations Vital Signs Reviewed: Yes - History of Present Illness HPI Narrative: Patient is a 56-year-old female with a past medical history of complete heart block and a pacemaker/defibrillator placed in 2015 presented to the ED this morning after her defibrillator depolarized. On Tuesday at 2:30 AM she was asleep in her defibrillator depolarized she did not seek medical care at this time. This morning at 6:46 AM she began to have shortness of breath and tightness in her chest and then her defibrillator went off she fell to the ground in the kitchen and hit her head. She called her page designer this morning they said they come in to the ED. She is a [employer] defibrillator. Her last echo was 11/22/16 which showed an EF of 20% and left ventricular systolic dysfunction. She is on the heart transplant list at [facility] with Dr. Gloria. She is on continuous dobutamine 2.5 mg per hr and Amiodarone 400mg QD. - Related Data Home Medications Medication Instructions Recorded Confirmed Dulaglutide [Trulicity] 0.5 mg SQ SA 04/19/16 05/27/17 Aspirin [Lo-Dose Aspirin EC] 81 mg PO DAILY MDD ON HOLD 05/03/16 05/27/17 Ferrous Sulfate [Iron] 325 mg PO DAILY 11/20/16 05/27/17 Furosemide [Lasix] 20 mg PO DAILY PRN 05/27/17 05/27/17 Lisinopril [Zestril] 5 mg PO DAILY 05/27/17 05/27/17 Potassium Chloride [K-Tab ER] 10 meq PO DAILY PRN 05/27/17 05/27/17 Simvastatin [Zocor] 10 mg PO DAILY 05/27/17 05/27/17 Previous Rx's Medication Instructions Recorded Amiodarone [Cordarone] 400 mg PO DAILY #30 tablet 11/24/16 Magnesium Oxide [Mag-Ox] 400 mg PO BID #30 tablet 11/24/16 Allergies Allergy/AdvReac Type Severity Reaction Status Date / Time No Known Allergies Allergy Verified 09/18/16 21:59 Review of Systems: ROS: constitutional: Denies fever, chills, weakness, dizziness HEENT: denies Headaches, changes in vision Resp: denies shortness of breath, coughing CV: Denies chest pain, lower extremity edema GI: Denies nausea, vomiting, diarrhea, constipation, hematochezia, abdominal pain Skin: Denies rashes, new lesions All systems ED: reviewed and negative except as stated. Review of Systems: As Per HPI Past Medical History - Past Medical History Medical history: Reports: arthritis, diabetes, GERD, hyperlipidemia, hypertension, SVT Surgical history: Reports: cholecystectomy, hysterectomy, pacemaker/AICD, other Psychiatric history: Reports: no psych history INSTALLATION & MAINTENANCE EXECUTIVE history: Reports: no INSTALLATION & MAINTENANCE EXECUTIVE history - Social History Smoking Status: Never smoker Smokeless Tobacco Status: No Alcohol use: Reports: none Drug use: Reports: none Physical Exam Constitutional: Alert, in no acute distress, well nourished, well developed. Head: flucuant about 3cm by 4cm on posterior parietal region, Heart: regular rate and rhythm, no murmurs Lungs: Clear to auscultation, no wheezes, rales, or rhonchi Abdomen: Soft, nondistended, nontender, and no masses palpable, bowel sounds present and normal, no guarding or rigidity. Extremities: R extremity will mild bruising on dorsal forearm, No clubbing, cyanosis, or edema, radial pulse +2/4, capillary refill <2sec. Skin: Skin warm and dry, no lesions, no rashes, no jaundice Neurologic: Cranial nerves II through XII grossly intact, no focal deficits, strength within normal limits in all extremities Psych: Cooperative with exam, good eye contact, cognitive function intact, judgment good insight good, speech clear, thought process logical, and goal directed - General Limitations: no limitations General appearance: alert, in no apparent distress Course Course Narrative: Cardiac workup was obtained. Electrolytes were within normal limits and troponin was negative. Patient's platelets are low at 124 but patient says they are chronically low. Chest x-ray showed no acute process. Head CT showed negative for osseous or intracranial abnormalities. UA shows a UTI. Patient's page designer Alfred was called for consultation and would like to admit her for observation and would like to put her on an amiodarone protocol and will consult. [facility] Dr. Oquendo who agreed that observation at [facility] is recommended. He suggests to put her on Amiodarone 400mg BID for a couple of days. He says that she should follow-up with the transplant clinic early next week. He says that with her current condition that she does not qualify for increasing her status for transplant but if her condition changes that we could check back with them. Talked to Dr. Redding, and she accepted the admission. Vital Signs Temperature 97.6 F 05/27/17 08:58 Pulse Rate 70 05/27/17 08:58 Respiratory Rate 16 05/27/17 08:58 Blood Pressure 117/68 05/27/17 08:58 O2 Sat by Pulse Oximetry 99 05/27/17 08:58 Temperature 97.6 F 05/27/17 08:58 Pulse Rate 75 05/27/17 13:30 Respiratory Rate 20 05/27/17 13:30 Blood Pressure 105/67 05/27/17 13:30 O2 Sat by Pulse Oximetry 99 05/27/17 13:30 Oxygen Delivery Oxygen Delivery Room Air Arrhythmia/Palpitations - Medical Records Medical records reviewed: Yes I reviewed the patient's medical records. - Lab Data Lab results reviewed: Yes I reviewed the patient's lab results. Lab results narrative: All Lab Results (24 Hours) 05/27/17 05/27/17 05/27/17 Range/Units 11:14 11:14 11:14 WBC 9.8 (4.3-11.1) K/mcL RBC 4.35 (3.82-4.97) M/mcL Hgb 12.2 (11.5-15.4) g/dL Hct 38.0 (35.3-44.9) % MCV 87.4 (83.0-100.0) fL MCH 28.0 (28.0-33.3) pg MCHC 32.1 (31.6-35.5) g/dL RDW 14.4 (11.5-14.5) % Plt Count 124 L (140-400) K/mcL MPV 11.5 (9.4-12.4) fL Sodium 138 (136-145) mEq/L Potassium 4.1 (3.5-4.5) mEq/L Chloride 107 (98-109) mEq/L Carbon Dioxide 24 (19-29) mEq/L BUN 18 (7-20) mg/dL Creatinine 1.04 (0.57-1.11) mg/dL Est GFR ( Amer) > 60 (> 60) Est GFR (Non-Af Amer) 54 L (> 60) BUN/Creatinine Ratio 17 (6-26) Glucose 102 H (70-99) mg/dL Calculated Osmolality 288 (280-300) Calcium 8.6 (8.6-10.8) mg/dL Magnesium 1.8 (1.6-2.6) mg/dL Troponin I 0.01 (0-0.03) ng/mL Urine Color (Yellow) Urine Clarity (Clear) Urine pH (5.0-8.0) pH Units Ur Specific [place] (1.010-1.025) Urine Protein (Neg-Trace) mg/dL Urine Glucose (UA) (Normal) mg/dL Urine Ketones (Negative) mg/dL Urine Blood (Negative) Urine Nitrite (Negative) Urine Bilirubin (Negative) Urine Urobilinogen (Normal) mg/dL Ur Leukocyte Esterase (Negative) Urine Microscopic RBC (0-3) per hpf Urine Microscopic WBC (0-3) per hpf Ur Squamous Epith Cells (None-Few) per lpf Urine Bacteria (None-Few) per hpf Hyaline Casts (None-Few) per lpf Ur Culture Indicated? (NO) 05/27/17 Range/Units 11:21 WBC (4.3-11.1) K/mcL RBC (3.82-4.97) M/mcL Hgb (11.5-15.4) g/dL Hct (35.3-44.9) % MCV (83.0-100.0) fL MCH (28.0-33.3) pg MCHC (31.6-35.5) g/dL RDW (11.5-14.5) % Plt Count (140-400) K/mcL MPV (9.4-12.4) fL Sodium (136-145) mEq/L Potassium (3.5-4.5) mEq/L Chloride (98-109) mEq/L Carbon Dioxide (19-29) mEq/L BUN (7-20) mg/dL Creatinine (0.57-1.11) mg/dL Est GFR ( Amer) (> 60) Est GFR (Non-Af Amer) (> 60) BUN/Creatinine Ratio (6-26) Glucose (70-99) mg/dL Calculated Osmolality (280-300) Calcium (8.6-10.8) mg/dL Magnesium (1.6-2.6) mg/dL Troponin I (0-0.03) ng/mL Urine Color Yellow (Yellow) Urine Clarity Clear (Clear) Urine pH 6.5 (5.0-8.0) pH Units Ur Specific [place] 1.013 (1.010-1.025) Urine Protein Negative (Neg-Trace) mg/dL Urine Glucose (UA) Normal (Normal) mg/dL Urine Ketones Negative (Negative) mg/dL Urine Blood Negative (Negative) Urine Nitrite Positive A (Negative) Urine Bilirubin Negative (Negative) Urine Urobilinogen Normal (Normal) mg/dL Ur Leukocyte Esterase Trace H (Negative) Urine Microscopic RBC 5-15 H (0-3) per hpf Urine Microscopic WBC 5-15 H (0-3) per hpf Ur Squamous Epith Cells Many H (None-Few) per lpf Urine Bacteria Many H (None-Few) per hpf Hyaline Casts None Seen (None-Few) per lpf Ur Culture Indicated? YES A (NO) Result diagrams: 05/27/17 11:14 05/27/17 11:14 Lab Results 05/27/17 05/27/17 05/27/17 Range/Units 11:14 11:14 11:14 WBC 9.8 (4.3-11.1) K/mcL RBC 4.35 (3.82-4.97) M/mcL Hgb 12.2 (11.5-15.4) g/dL Hct 38.0 (35.3-44.9) % MCV 87.4 (83.0-100.0) fL MCH 28.0 (28.0-33.3) pg MCHC 32.1 (31.6-35.5) g/dL RDW 14.4 (11.5-14.5) % Plt Count 124 L (140-400) K/mcL MPV 11.5 (9.4-12.4) fL Sodium 138 (136-145) mEq/L Potassium 4.1 (3.5-4.5) mEq/L Chloride 107 (98-109) mEq/L Carbon Dioxide 24 (19-29) mEq/L BUN 18 (7-20) mg/dL Creatinine 1.04 (0.57-1.11) mg/dL Est GFR ( Amer) > 60 (> 60) Est GFR (Non-Af Amer) 54 L (> 60) BUN/Creatinine Ratio 17 (6-26) Glucose 102 H (70-99) mg/dL Calculated Osmolality 288 (280-300) Calcium 8.6 (8.6-10.8) mg/dL Magnesium 1.8 (1.6-2.6) mg/dL Troponin I 0.01 (0-0.03) ng/mL Urine Color (Yellow) Urine Clarity (Clear) Urine pH (5.0-8.0) pH Units Ur Specific [place] (1.010-1.025) Urine Protein (Neg-Trace) mg/dL Urine Glucose (UA) (Normal) mg/dL Urine Ketones (Negative) mg/dL Urine Blood (Negative) Urine Nitrite (Negative) Urine Bilirubin (Negative) Urine Urobilinogen (Normal) mg/dL Ur Leukocyte Esterase (Negative) Urine Microscopic RBC (0-3) per hpf Urine Microscopic WBC (0-3) per hpf Ur Squamous Epith Cells (None-Few) per lpf Urine Bacteria (None-Few) per hpf Hyaline Casts (None-Few) per lpf Ur Culture Indicated? (NO) 05/27/17 Range/Units 11:21 WBC (4.3-11.1) K/mcL RBC (3.82-4.97) M/mcL Hgb (11.5-15.4) g/dL Hct (35.3-44.9) % MCV (83.0-100.0) fL MCH (28.0-33.3) pg MCHC (31.6-35.5) g/dL RDW (11.5-14.5) % Plt Count (140-400) K/mcL MPV (9.4-12.4) fL Sodium (136-145) mEq/L Potassium (3.5-4.5) mEq/L Chloride (98-109) mEq/L Carbon Dioxide (19-29) mEq/L BUN (7-20) mg/dL Creatinine (0.57-1.11) mg/dL Est GFR ( Amer) (> 60) Est GFR (Non-Af Amer) (> 60) BUN/Creatinine Ratio (6-26) Glucose (70-99) mg/dL Calculated Osmolality (280-300) Calcium (8.6-10.8) mg/dL Magnesium (1.6-2.6) mg/dL Troponin I (0-0.03) ng/mL Urine Color Yellow (Yellow) Urine Clarity Clear (Clear) Urine pH 6.5 (5.0-8.0) pH Units Ur Specific [place] 1.013 (1.010-1.025) Urine Protein Negative (Neg-Trace) mg/dL Urine Glucose (UA) Normal (Normal) mg/dL Urine Ketones Negative (Negative) mg/dL Urine Blood Negative (Negative) Urine Nitrite Positive A (Negative) Urine Bilirubin Negative (Negative) Urine Urobilinogen Normal (Normal) mg/dL Ur Leukocyte Esterase Trace H (Negative) Urine Microscopic RBC 5-15 H (0-3) per hpf Urine Microscopic WBC 5-15 H (0-3) per hpf Ur Squamous Epith Cells Many H (None-Few) per lpf Urine Bacteria Many H (None-Few) per hpf Hyaline Casts None Seen (None-Few) per lpf Ur Culture Indicated? YES A (NO) - Radiology Data Radiology results reviewed: Yes I reviewed the patient's radiology results. Chest X-Ray 05/27/17 09:48 IMPRESSION: 1. Interval placement of a right upper extremity PICC. The tip terminates in the mid subclavian vein. 2. No acute cardiopulmonary disease. D/ / 05/27/2017 11:51:28 Janelle Root MD / phillip Interpreting Provider: Janelle Root MD Head CT 05/27/17 09:48 IMPRESSION: No acute intracranial abnormality. D/ / Bhavin Tejeda MD / Bhavin Tejeda MD Interpreting Provider: Bhavin Tejeda MD - EKG Data EKG attestation: Yes I reviewed and interpreted this EKG. EKG shows normal: sinus rhythm Rate: normal Interpretation: unchanged when compared to prior tracing (date) (11/20/2016, atrial and ventricular paced rhythm, rate is 64 and regular with one PVC) Attestation Statement - Attestation Attestation: I, Juan Rascon DO, examined this patient [id number] and my medical decision-making was reviewed with Dr. Higginbotham PGY-1, Resident Physician. I agree with the documented findings, disposition and treatment plan as described except to the extent set forth below. Please see my progress notes for details. 56-year-old female presents emergency room with defibrillator firing twice in the last week. Patient has long-standing issue of third-degree heart block requiring a maker defibrillator. Over the last several years she has had decompensation of her heart requiring what appears to be transplant. She scheduled for transplant at [facility]. Patient had electrolytes reviewed as well as medical evaluation. Found to have urinary tract infection. Consultation between cardiology here at our facility as well as [facility] were completed. Recommendations for 400 mg of amiodarone twice a day were given from [facility]. This information was conveyed onto the hospitalist as well as a page designer here. Patient will be admitted for observation and medication stabilization this time. Otherwise no other acute issues noted. See detailed documentation course of care. Patient did require one bolus of amiodarone while here and had several runs of V. tach that were not sustained. One shock was delivered here by her defibrillator. Disposition will be admission to hospital. Detailed review the presentation symptoms were discussed with the hospitalist. See documentation in the resident's note.
[2017-05-27] MEDS ORDERED: *HR* Amiodarone 200 MG TABLET PO ONE (10:00)
[2017-05-27 11:20] LABS: Hemoglobin 12.2 g/dL (11.5-15.4); Mean Corpuscular HGB Conc 32.1 g/dL (31.6-35.5); Mean Corpuscular Volume 87.4 fL (83.0-100.0); Mean Platelet Volume 11.5 fL (9.4-12.4); Platelet Count 124 K/mcL (140-400); Red Blood Count 4.35 M/mcL (3.82-4.97); Red Cell Distribution Width 14.4 % (11.5-14.5)
[2017-05-27 11:31] LABS: Bilirubin,Urine Negative (Negative); Blood,Urine Negative (Negative); Color,Urine Yellow (Yellow); Glucose,Urine (UA) Normal (Normal); Ketones,Urine Negative (Negative); Leukocyte Esterase,Urine Trace (Negative); Nitrite,Urine Positive (Negative); PH,Urine 6.5 pH Units (5.0-8.0); Protein,Urine Negative (Neg-Trace); Specific Gravity,Urine 1.013 (1.010-1.025); Urobilinogen,Urine Normal (Normal)
[2017-05-27 11:32] LABS: Bacteria,Urine Many per hpf (None-Few); Hyaline Casts,Urine None Seen per lpf (None-Few); Squamous Epithelial Cell,Urine Many per lpf (None-Few)
[2017-05-27 11:33] LABS: BUN/Creatinine Ratio 17 (6-26); Blood Urea Nitrogen 18 mg/dL (7-20); Calcium 8.6 mg/dL (8.6-10.8); Carbon Dioxide 24 mEq/L (19-29); Chloride 107 mEq/L (98-109); Glucose 102 mg/dL (70-99); Magnesium 1.8 mg/dL (1.6-2.6); Osmolality,Calculated 288 (280-300); Potassium 4.1 mEq/L (3.5-4.5); Sodium 138 mEq/L (136-145); eGFR For African Americans > 60 (> 60); eGFR For Non-African Americans 54 (> 60)
[2017-05-27 11:35] LABS: Clarity,Urine Clear (Clear)
[2017-05-27] MEDS ORDERED: Amiodarone Premix 150 MG/100 ML BAG IVPB ONE (12:58)
[2017-05-27] MEDS ORDERED: Ondansetron 4 MG/2 ML VIAL IVP PRN (15:11)
[2017-05-27] MEDS ORDERED: Acetaminophen 325 MG TABLET PO PRN (15:11)
[2017-05-27] MEDS ORDERED: Naloxone 0.4 MG/ML INJ IVP PRN (15:11)
[2017-05-27] MEDS ORDERED: *HR* HYDROcodone/Acet 5/325 mg TABLET PO PRN (15:11)
[2017-05-27] MEDS ORDERED: Amiodarone Premix 360 MG/200 ML BAG IVC ONE (15:19)
--- NOTE | 2017-05-27 15:27 | Internal Med History&Physical ---
<Magali Massey - Last Filed: 05/27/17 16:29> Date of Encounter: 05/27/17 Time of Encounter: 15:24 Assessment and Plan (1) Ventricular tachycardia Current visit: No Status: Acute Patient presents after episode of implanted defibrilator firing and syncopal episode. She did hit her head when she fell, CT head negative The patient has a history of non-ischemic cardiomyopathy, EF 11/22/16 was 20%, with a pacemaker and defibrillator in place who has been on the heart transplant list for the last month. She follows with the [facility] heart transplant cardiology group for her care. She has been on amiodarone 400mg daily with a continuous infusion of dobutamine 2.5mg/hr through a PICC line. While in the ER she had multiple runs of v-tach which were non-sustained. She did have one sustained run that shocked her back into SR. Interrogation of her pacemaker showed and episode of V-tach last Tuesday (at which time she also felt a shock) and also this morning. ER provider contacted Dr. Simon with cardiology who would like to have the patient stay overnight for observation on an amiodarone maintenance drip. Pt received bolus in ED. They also contacted Dr. Houston with the [facility] heart transplant team who agree with keeping her on amiodarone. They suggest discharging her on an increased home dose of amiodarone 400mg PO BID with close f/u with them early next week. Plan: -Continue dobutamine -Amiodarone drip: 1mg/min x6hrs then 0.5mg/min -telemetry, oximetry, VS per protocol -Daily weights -I/Os -Diabetic diet -GI prophylaxis: omeprazole -DVT prophylaxis: Heparin SQ (2) Nonischemic cardiomyopathy Current visit: No Status: Chronic Per above plan (3) Syncope, cardiogenic Current visit: No Status: Acute Per above plan (4) Hypertension Current visit: No Status: Chronic Stable, will continue home meds Qualifiers: Hypertension type: essential hypertension Qualified Code(s): I10 - Essential (primary) hypertension (5) Diabetes mellitus Current visit: Yes Status: Chronic Patient currently on trulicity without basal coverage or oral agents Will start on medium dose SSI, add basal based on patient glucose readings Plan: -Accuchecks ACHS -Medium dose SSI -Add basal coverage as needed -Hgb A1C Qualifiers: Diabetes mellitus type: type 2 Diabetes mellitus complication status: with kidney complications Diabetes mellitus complication detail: with chronic kidney disease Diabetes mellitus termite control technician insulin use: without correction use Chronic kidney disease stage: stage 2 (mild) Qualified Code(s): E11.22 - Type 2 diabetes mellitus with diabetic chronic kidney disease; N18.2 - Chronic kidney disease, stage 2 (mild) (6) Dyslipidemia Current visit: No Status: Chronic Continue statin Internal Medicine - H&P: HPI Chief complaint: defibrillator fired this morning and 05/22/17 Admitted From: Emergency Dept Plans for Post Hospital Care: Home History of present illness: Ms. Lopez is a 56 year old female with a past medical history of complete heart block and a pacemaker & defibrillator, the defibrillator was placed in 2015, DM, HLD, and HTN who presented to the ED this morning after her defibrillator fired. On 05/22/17 at 0230 she was asleep when her defibrillator fired, waking her up. She did not seek medical care at this time. This morning at 0646 she began to have shortness of breath and tightness in her chest while she was standing in her kitchen. She states she felt the same as when it has fired before, so she turned to grab onto something when the defibrillator went off. She fell to the ground and hit her head. She called her appraisal specialist this morning they said they come in to the ED. She has a pacemaker and a [employer]tronic defibrillator. Her last ECHO at [facility] was 11/22/16 which showed an EF of 20% and left ventricular systolic dysfunction. She is on the heart transplant list at [facility] with Dr. Gloria, which she states she has been on for a month. She is on continuous dobutamine 2.5 mg per hr through a PICC line and Amiodarone 400mg PO QD. She states that last week she was sick -tuesday with nausea and fatigue. She felt better tuesday and has been well through this week. She also states that she has chronically low magnesium and takes daily oral supplements. She has not taken her aspirin for several days because she was getting bruising on her arms. She also has swelling of her legs. She denies any MARC, dizziness, visual changes, fevers, chills, cp, sob, palpitations, nausea, vomiting, diarrhea, abdominal pain, dysuria, burning with urination, urinary frequency, rashes. Her plt count is low at 124, but otherwise CBC, BMP were WNL , EKG showed a paced rhythm, troponin was negative, CXR negative, Head CT negative. She was noted to have multiple runs of non-sustained v-tach and one sustained run of v-tach that her defib shocked back into sinus rhythm while in the ED. The interrogator showed V-tach as the cause this morning and Tuesday. The case was discussed with Dr. Simon and [facility] appraisal specialist Dr. Houston who agree to admit for observation on amiodarone maintenance drip. The patient was accepted by the hospitalist service in stable condition for further observation and treatment. Past Med Surg Social Fam HX - Past Medical History Medical history: arthritis, diabetes, GERD, hyperlipidemia, hypertension, SVT Psychiatric history: no psych history - Past Surgical History Surgical History: cholecystectomy, hysterectomy, pacemaker/AICD, other - Social History Smoking Status: Never smoker Smokeless Tobacco Status: No Alcohol use: none Drug use: none - Family History Mother Living Status: Hx Family Cardiac Disorders: Yes (CHF, DM) Brother Living Status: Still Living Hx Family Cardiac Disorders: Yes (PCI in 60s) Father Living Status: Hx Family Cardiac Disorders: Yes (HTN) Hx Family Respiratory Disorders: Yes (COPD) Internal Medicine - H&P: Meds Dulaglutide [Trulicity] 0.5 mg SQ SA 04/19/16 [History] Aspirin [Lo-Dose Aspirin EC] 81 mg PO DAILY MDD ON HOLD 05/03/16 [History] Ferrous Sulfate [Iron] 325 mg PO DAILY 11/20/16 [History] Amiodarone [Cordarone] 400 mg PO DAILY #30 tablet 11/24/16 [Rx] Magnesium Oxide [Mag-Ox] 400 mg PO BID #30 tablet 11/24/16 [Rx] Furosemide [Lasix] 20 mg PO DAILY PRN 05/27/17 [History] Lisinopril [Zestril] 5 mg PO DAILY 05/27/17 [History] Potassium Chloride [K-Tab ER] 10 meq PO DAILY PRN 05/27/17 [History] Simvastatin [Zocor] 10 mg PO DAILY 05/27/17 [History] 3 Allergy/AdvReac Type Severity Reaction Status Date / Time No Known Allergies Allergy Verified 09/18/16 21:59 All Systems PM: A 10-system review of systems was performed and is negative for pertinent findings except as documented above in the HPI. - Constitutional Vitals: Temp Pulse Resp BP Pulse Ox 98.1 F 71 0 0/0 98 05/27/17 14:57 05/27/17 14:57 05/27/17 15:05 05/27/17 15:05 05/27/17 14:57 General appearance: Present: cooperative, A&O X 3, pleasant, no acute distress - Head Head exam: Present: normocephalic Additional comments: eccymosis on posterior right parietal region that is approximately [id number], fluctuant, skin intact - Eye Eye exam: Present: EOMI, normal appearance, PERRL, conjuntiva pink, sclera anicteric Pupils: Present: normal accommodation, PERRL - ENT ENT exam: Present: mucous membranes moist, normal exam, normal oropharynx - Neck Neck exam general surgery: Present: normal inspection, supple, trachea midline. Absent: lymphadenopathy, tenderness, thyromegaly - Respiratory Respiratory exam: Present: CTAB. Absent: accessory muscle use, rales, rhonchi, wheezes - Cardiovascular Cardiovascular exam: Present: RRR. Absent: diastolic murmur, gallop, rubs, systolic murmur - GI/Abdominal GI/Abdominal exam: Present: normal bowel sounds, soft, no peritoneal signs. Absent: distended, tenderness - Extremities Exam Extremities exam: Present: pedal edema, radial pulses palpable and symmetrical. Absent: calf tenderness, cyanotic - Back Exam Back exam: Present: normal inspection - Neurological Exam Neurological exam: Present: alert, CN II-XII intact, oriented X3, no focal deficits, strengths equal and symetr throughout. Absent: motor sensory deficit , facial droop, speech deficit - Psychiatric Psychiatric exam: Present: normal affect, normal mood - Skin Skin exam: Present: dry, intact Internal Med - H&P Results - Labs CBC & Chem 7: 05/27/17 11:14 05/27/17 11:14 <Anita Redding - Last Filed: 05/28/17 07:37> Date of Encounter: 05/27/17 Time of Encounter: 16:05 Internal Medicine - H&P: HPI History of present illness: Ms. Lopez is a 56 year old female All Systems PM: A 10-system review of systems was performed and is negative for pertinent findings except as documented above in the HPI. - Constitutional Vitals: Temp Pulse Resp BP Pulse Ox 98.2 F 64 18 115/72 98 05/28/17 07:14 05/28/17 07:14 05/28/17 07:14 05/28/17 07:14 05/28/17 07:14 Internal Med - H&P Results - Labs CBC & Chem 7: 05/27/17 11:14 05/27/17 11:14 - Attending Attestation Pt independently seen and examined. Admitted for sustained V-tach and malfunctioning defibrillator. Cardiology input appreciated. pt to be continued on Amiodarone maintenance drip. tele monitoring. Continue dobutamine. Case discussed with resident physician Karina Massey, I agree with her documented findings, assessment, and plan.
[2017-05-27] MEDS ORDERED: Dextrose Gel 15 GM PO PRN ×2 (15:36)
[2017-05-27] MEDS ORDERED: D5% in Water 1,000 ML IVC PRN (15:36)
[2017-05-27] MEDS ORDERED: *HR* Dextrose 50 % in Water (Syg) 50 ML SYRINGE IVP PRN (15:36)
--- NOTE | 2017-05-27 15:56 | Cardiology Consult Note ---
Date of Encounter: 05/27/17 Time of Encounter: 15:00 Assessment and Plan (1) Ventricular tachycardia Current Visit: No Status: Acute Per cardiology: -Has long standing history of Ventricular tachycardia. -Has ICD in place, device interrogated in ER with 2 VT episodes, attempted ATP but failed, and 2 ICD shocks since last interrogation. -ICD was interrogated in cardiology clinic with no events noted. -K and Mg within normal limits. -Troponin negative. -ECG with paced rhythm, PVC noted. -On amiodarone 400mg daily at home. -Per discussion with , IV loading dose of amio given in ER. Orders for amio drip were placed by primary service. -Will continue to monitor. -Will change back to po amio after IV load. (2) Nonischemic cardiomyopathy Current Visit: No Status: Chronic Per cardiology: -Known non-ishcemic cardiomyopathy. -Echo 11/2016 with LVEF 20%, severe global LV systolic dysufnction, LV mildly dilated, mild diastolic dysfunction, normal RV size and function, mild-moderate MR, moderate TR (may be underestimated), all avina hypokinetic. -C 04/2016 with 40% stenosis diagonal, 20% mid circumflex, 20% mid RCA. -On salbador inhibitor. -Follows with [facility] heart failure clinic and is awaiting heart transplant. -Patient states was placed on continuous dobutamine infusion at home. -Will start beta brianna. -Will obtain records from [facility]. -Will continue to monitor. Discussion w patient/family: The assessment and plan as outlined above was discussed with the patient and/or family members who expressed understanding and agreement. All questions were answered. Thank you for involving us in the care of your patient. Please call with any questions. Discussed and reviewed with . History of Present Illness Consult date: 05/27/17 Requesting physician: Glenna Higginbotham Consult reason: recurrent Ventricular tachycardia Chief complaint: ICD shock History of present illness: Ms. Lopez is a 56 year old female with a relevant past medical history of DM , HTN, hyperlipidemia, complete heart block s/p pacemaker 2009, non-ischemic cardiomyopathy with device upgrade to ICD 2015. Patient has been following with [facility] heart failure clinic and is awaiting heart transplant. Of note, patient reports was recently placed on continuous dobutamine infusion at home. Patient states she had been doing fairly well until last week. Patient states last Tuesday, he received ICD shock. Patient states she has been feeling more fatigued over the last week. Patient states she has had some pain in her back that she has had before. Patient states shortness of breath is about baseline. Patient states this morning she received another ICD shock. Past Med Surg Social Fam HX - Past Medical History Attestation: Yes The following information was validated with the patient. Source: patient, old records reviewed, obtained from family Medical history: arthritis, diabetes, GERD, hyperlipidemia, hypertension, SVT Psychiatric history: no psych history - Past Surgical History Surgical History: cholecystectomy, hysterectomy, pacemaker/AICD, other - Social History Smoking Status: Never smoker Smokeless Tobacco Status: No Alcohol use: none Drug use: none - Family History Mother Living Status: Hx Family Cardiac Disorders: Yes (CHF, DM) Brother Living Status: Still Living Hx Family Cardiac Disorders: Yes (PCI in 60s) Father Living Status: Hx Family Cardiac Disorders: Yes (HTN) Hx Family Respiratory Disorders: Yes (COPD) Medications and Allergies Dulaglutide [Trulicity] 0.5 mg SQ SA 04/19/16 [History] Aspirin [Lo-Dose Aspirin EC] 81 mg PO DAILY MDD ON HOLD 05/03/16 [History] Ferrous Sulfate [Iron] 325 mg PO DAILY 11/20/16 [History] Amiodarone [Cordarone] 400 mg PO DAILY #30 tablet 11/24/16 [Rx] Magnesium Oxide [Mag-Ox] 400 mg PO BID #30 tablet 11/24/16 [Rx] Furosemide [Lasix] 20 mg PO DAILY PRN 05/27/17 [History] Lisinopril [Zestril] 5 mg PO DAILY 05/27/17 [History] Potassium Chloride [K-Tab ER] 10 meq PO DAILY PRN 05/27/17 [History] Simvastatin [Zocor] 10 mg PO DAILY 05/27/17 [History] 3 Allergy/AdvReac Type Severity Reaction Status Date / Time No Known Allergies Allergy Verified 09/18/16 21:59 All Systems Review: A 10-system review of systems was performed and is negative for pertinent findings except as documented above in the HPI. - Cardiovascular Cardiovascular: as per HPI, irregular heart rhythm Physical Examination Vital Signs, Last 4 Hours Temp Pulse Resp BP Pulse Ox 05/27/17 14:57 98.1 F 71 16 120/73 98 General: Conversant, No Apparent Distress HEENT: Atraumatic, Normocephaly, Mucus Membranes Moist Neck: No JVD, Normal carotid pulses Cardiac: Reg Rate and Rhythm, Normal S1 and S2, No Murmur Lungs: Normal Breath Sounds, No Wheeze, Rales, Rhonchi Neuro: Alert and responsive, No focal deficits noted Abdomen: Soft, Non-Tender Skin: No rashes noted on visualized skin Musculoskeletal: No Chest Wall Tenderness Extremities: No Clubbing, No Cyanosis, No Edema, Normal Pulses Results 05/27/17 11:14 05/27/17 11:14 Impressions Chest X-Ray 05/27/17 09:48 IMPRESSION: 1. Interval placement of a right upper extremity PICC. The tip terminates in the mid subclavian vein. 2. No acute cardiopulmonary disease. D/ / 05/27/2017 11:51:28 Janelle Root MD / phillip Interpreting Provider: Janelle Root MD Head CT 05/27/17 09:48 IMPRESSION: No acute intracranial abnormality. D/ / Bhavin Tejeda MD / Bhavin Tejeda MD Interpreting Provider: Bhavin Tejeda MD Active Medications Acetaminophen (Tylenol) 650 mg PO Q6HR PRN PRN Reason: Mild Pain (1-3) Stop: 11/26/17 15:12 Hydrocodone Bitart/Acetaminophen ([place] 5-325 Mg) 1 tab PO Q4HR PRN PRN Reason: Moderate Pain (4-6) Stop: 11/26/17 15:12 Aspirin (Aspirin Ec) 81 mg PO DAILY JAMIE Stop: 11/27/17 09:01 Dextrose/Water (Dextrose 50% (Syg)) 25 ml IVP AD PRN PRN Reason: Hypoglycemia Stop: 11/26/17 15:37 Docusate Sodium (Colace) 100 mg PO BID PRN PRN Reason: Constipation Stop: 11/26/17 15:12 Ferrous Sulfate (Ferrous Sulfate) 325 mg PO DAILY JAMIE Stop: 11/27/17 09:01 Furosemide (Lasix) 20 mg PO DAILY PRN PRN Reason: Edema Stop: 11/27/17 09:01 Glucagon (Glucagen) 1 mg IM ONCE PRN PRN Reason: Hypoglycemia Stop: 11/26/17 15:37 Glucose (Gluctose) 15 gm PO ONCE PRN PRN Reason: Hypoglycemia Stop: 11/26/17 15:37 Glucose (Gluctose) 30 gm PO ONCE PRN PRN Reason: Hypoglycemia Stop: 11/26/17 15:37 Heparin Sodium (Porcine) (Heparin) 5,000 unit SQ Q8HCO JAMIE Stop: 11/26/17 22:01 Amiodarone HCl/Dextrose (Amiodarone Drip Premix 360mg/200ml) 360 mg in 200 mls @ 33.333 mls/hr IVC ONCE ONE PRN Reason: 1 MG/MIN Stop: 05/27/17 21:18 Amiodarone HCl/Dextrose (Amiodarone Drip Premix 360mg/200ml) 360 mg in 200 mls @ 16.667 mls/hr IVC CONT JAMIE PRN Reason: 0.5 MG/MIN Stop: 11/26/17 21:01 Dextrose (Dextrose 5%) 1,000 mls @ 100 mls/hr IVC .Q10H PRN PRN Reason: HYPOGLYCEMIA Stop: 11/26/17 15:37 Insulin Human Lispro (Humalog) 0 units SQ HS JAMIE PRN Reason: Protocol Stop: 11/26/17 21:01 Insulin Human Lispro (Humalog) 0 units SQ TIDAC JAMIE PRN Reason: Protocol Stop: 11/26/17 16:31 Lisinopril (Zestril) 5 mg PO DAILY [facility] PRN Reason: Protocol Stop: 11/27/17 09:01 Magnesium Oxide (Mag-Ox) 400 mg PO BID [facility] PRN Reason: Protocol Stop: 11/26/17 21:01 Naloxone HCl (Narcan) 0.4 mg IVP Q2MIN PRN PRN Reason: Opioid Reversal Stop: 11/26/17 15:12 Omeprazole (Prilosec) 20 mg PO DAILY@0630 [facility] PRN Reason: Protocol Stop: 11/27/17 06:31 Ondansetron HCl (Zofran) 4 mg IVP Q8HR PRN PRN Reason: Nausea And Vomiting Stop: 11/26/17 15:12 Potassium Chloride (Potassium Chloride) 10 meq PO DAILY PRN PRN Reason: with lasix Simvastatin (Zocor) 10 mg PO DAILY JAMIE Stop: 11/27/17 09:01 Laboratory Tests 05/27/17 05/27/17 05/27/17 11:14 11:14 11:14 Hgb 12.2 Plt Count 124 L Potassium 4.1 Creatinine 1.04 Magnesium 1.8 Troponin I 0.01 - Imaging and Cardiology Chest Xray: report reviewed Echo: report reviewed Cardiac cath: report reviewed - EKG Interpretation EKG results cardiology: personally reviewed (ECG with paced rhythm, HR 64, PVC noted.) Consult Discharge Plan - Plan Referrals: Lamonte Lassiter DO [Primary Care Provider] - 06/07/17 10:30 am
[2017-05-27] MEDS: Insulin LISPRO 300 UNITS/3 ML VIAL SQ SCH ×2 (16:36→21:08)
[2017-05-27] MEDS: Magnesium Oxide 400 MG TABLET PO SCH (21:21)
[2017-05-27] MEDS: *HR* Heparin 5,000 UNIT/ML VIAL SQ SCH (21:21)
[2017-05-27] MEDS: Amiodarone Premix 360 MG/200 ML BAG IVC SCH (22:20)
[2017-05-28] MEDS: *HR* Heparin 5,000 UNIT/ML VIAL SQ SCH ×3 (05:49→21:04)
[2017-05-28 07:52] LABS: Basophils # 0.1 K/mcL (0.0-0.2); Basophils % 0.6 %; Eosinophils # 0.1 K/mcL (0.0-0.6); Eosinophils % 1.2 %; Hematocrit 37.9 % (35.3-44.9); Hemoglobin 12.1 g/dL (11.5-15.4); Immature Granulocytes % 1.1 % (0-4); Lymphocytes # 0.8 K/mcL (0.6-4.6); Lymphocytes % 7.2 %; Mean Corpuscular HGB Conc 31.9 g/dL (31.6-35.5); Mean Corpuscular Hemoglobin 27.5 pg (28.0-33.3); Mean Corpuscular Volume 86.1 fL (83.0-100.0); Mean Platelet Volume 12.1 fL (9.4-12.4); Monocytes # 0.9 K/mcL (0.0-1.3); Monocytes % 8.2 %; Neutrophils # 8.5 K/mcL (1.6-8.9); Platelet Count 136 K/mcL (140-400); Red Cell Distribution Width 14.2 % (11.5-14.5); Segmented Neutrophils % 81.7 %
[2017-05-28 08:05] LABS: Alanine Aminotransferase 16 Units/L (0-55); Albumin 2.5 g/dL (3.5-5.0); Albumin/Globulin Ratio 0.9 (1.1-2.2); Alkaline Phosphatase 143 Units/L (38-126); Aspartate Amino Transferase 24 Units/L (5-34); BUN/Creatinine Ratio 11 (6-26); Bilirubin,Total 0.6 mg/dL (0.2-1.2); Blood Urea Nitrogen 12 mg/dL (7-20); Calcium 8.5 mg/dL (8.6-10.8); Carbon Dioxide 29 mEq/L (19-29); Chloride 103 mEq/L (98-109); Globulin 2.9 g/dL (2.4-3.5); Glucose 97 mg/dL (70-99); Magnesium 1.6 mg/dL (1.6-2.6); Osmolality,Calculated 284 (280-300); Potassium 4.1 mEq/L (3.5-4.5); Sodium 137 mEq/L (136-145); Total Protein 5.4 g/dL (6.0-8.3); eGFR For African Americans > 60 (> 60); eGFR For Non-African Americans 53 (> 60)
[2017-05-28] MEDS ORDERED: Metoprolol XL (24 HR) Succ 50 MG TAB.ER.24H PO SCH (09:00)
[2017-05-28] MEDS ORDERED: Furosemide 20 MG TABLET PO PRN (09:00)
[2017-05-28 09:02] LABS: Hemoglobin A1C 4.5 %
[2017-05-28] MEDS: Insulin LISPRO 300 UNITS/3 ML VIAL SQ SCH ×4 (09:25→21:05)
[2017-05-28] MEDS: Amiodarone Premix 360 MG/200 ML BAG IVC SCH ×2 (09:50→21:15)
[2017-05-28] MEDS: Aspirin Enteric Coated 81 MG Tablet PO SCH (09:50)
[2017-05-28] MEDS: Magnesium Oxide 400 MG TABLET PO SCH ×2 (09:50→21:04)
--- NOTE | 2017-05-28 10:26 | Cardiology Progress Note ---
Date of Encounter: 05/28/17 Time of Encounter: 09:30 Assessment and Plan (1) Ventricular tachycardia Current Visit: No Status: Acute Per cardiology: -Has long standing history of Ventricular tachycardia. -Has ICD in place, device interrogated in ER with 2 VT episodes, attempted ATP but failed, and 2 ICD shocks since last interrogation. -ICD was interrogated in cardiology clinic with no events noted. -K and Mg within normal limits. -Troponin negative. -ECG with paced rhythm, PVC noted. -On amiodarone drip. -No sustained VT noted per telemetry overnight. -Patient denies ICD shocks overnight. -Will continue IV amio for now, plan to switch to po tomorrow. -Will continue to monitor. (2) Nonischemic cardiomyopathy Current Visit: No Status: Chronic Per cardiology: -Known non-ishcemic cardiomyopathy. -Echo 11/2016 with LVEF 20%, severe global LV systolic dysufnction, LV mildly dilated, mild diastolic dysfunction, normal RV size and function, mild-moderate MR, moderate TR (may be underestimated), all avina hypokinetic. -LHC 04/2016 with 40% stenosis diagonal, 20% mid circumflex, 20% mid RCA. -On salbador inhibitor and dobutamine continuous infusion. -Follows with [facility] heart failure clinic and is awaiting heart transplant. -Patient states was placed on continuous dobutamine infusion at home. -Will continue to monitor. Discussion w patient/family: The assessment and plan as outlined above was discussed with the patient who expressed understanding and agreement. All questions were answered. Thank you for involving us in the care of your patient. Please call with any questions. Discussed and reviewed with . Subjective Principal diagnosis: ventricular tachycardia Interval history: Patient denies ICD shocks overnight. Patient states she feels well this morning. Objective Vital Signs Vital Signs Temperature 97.6 F 05/27/17 08:58 Pulse Rate 70 05/27/17 08:58 Respiratory Rate 16 05/27/17 08:58 Blood Pressure 117/68 05/27/17 08:58 O2 Sat by Pulse Oximetry 99 05/27/17 08:58 Temperature 98.2 F 05/28/17 07:14 Pulse Rate 64 05/28/17 07:14 Respiratory Rate 18 05/28/17 07:14 Blood Pressure 115/72 05/28/17 07:14 O2 Sat by Pulse Oximetry 98 05/28/17 07:14 Oxygen Delivery Oxygen Delivery Room Air General: Conversant, No Apparent Distress HEENT: Atraumatic, Normocephaly, Mucus Membranes Moist Neck: No JVD, Normal carotid pulses Cardiac: Reg Rate and Rhythm, Normal S1 and S2, No Murmur Lungs: Normal Breath Sounds, No Wheeze, Rales, Rhonchi Neuro: Alert and responsive, No focal deficits noted Abdomen: Soft, Non-Tender Skin: No rashes noted on visualized skin Musculoskeletal: No Chest Wall Tenderness Extremities: No Clubbing, No Cyanosis, No Edema, Normal Pulses Results 05/28/17 07:10 05/28/17 07:10 Impressions Chest X-Ray 05/27/17 09:48 IMPRESSION: 1. Interval placement of a right upper extremity PICC. The tip terminates in the mid subclavian vein. 2. No acute cardiopulmonary disease. D/ / 05/27/2017 11:51:28 Janelle Root MD / phillip Interpreting Provider: Janelle Root MD Head CT 05/27/17 09:48 IMPRESSION: No acute intracranial abnormality. D/ / Bhavin Tejeda MD / Bhavin Tejeda MD Interpreting Provider: Bhavin Tejeda MD Active Medications Acetaminophen (Tylenol) 650 mg PO Q6HR PRN PRN Reason: Mild Pain (1-3) Stop: 11/26/17 15:12 Hydrocodone Bitart/Acetaminophen ([place] 5-325 Mg) 1 tab PO Q4HR PRN PRN Reason: Moderate Pain (4-6) Stop: 11/26/17 15:12 Aspirin (Aspirin Ec) 81 mg PO DAILY JAMIE Stop: 11/27/17 09:01 Last Admin: 05/28/17 09:50 Dose: 81 mg Dextrose/Water (Dextrose 50% (Syg)) 25 ml IVP AD PRN PRN Reason: Hypoglycemia Stop: 11/26/17 15:37 Docusate Sodium (Colace) 100 mg PO BID PRN PRN Reason: Constipation Stop: 11/26/17 15:12 Ferrous Sulfate (Ferrous Sulfate) 325 mg PO DAILY JAMIE Stop: 11/27/17 09:01 Last Admin: 05/28/17 09:50 Dose: 325 mg Furosemide (Lasix) 20 mg PO DAILY PRN PRN Reason: Edema Stop: 11/27/17 09:01 Glucagon (Glucagen) 1 mg IM ONCE PRN PRN Reason: Hypoglycemia Stop: 11/26/17 15:37 Glucose (Gluctose) 15 gm PO ONCE PRN PRN Reason: Hypoglycemia Stop: 11/26/17 15:37 Glucose (Gluctose) 30 gm PO ONCE PRN PRN Reason: Hypoglycemia Stop: 11/26/17 15:37 Heparin Sodium (Porcine) (Heparin) 5,000 unit SQ Q8HCO JAMIE Stop: 11/26/17 22:01 Last Admin: 05/28/17 05:49 Dose: 5,000 unit Amiodarone HCl/Dextrose (Amiodarone Drip Premix 360mg/200ml) 360 mg in 200 mls @ 16.667 mls/hr IVC CONT JAMIE PRN Reason: 0.5 MG/MIN Stop: 11/26/17 21:01 Last Admin: 05/28/17 09:50 Dose: 0.5 mg/min, 16.667 mls/hr Dextrose (Dextrose 5%) 1,000 mls @ 100 mls/hr IVC .Q10H PRN PRN Reason: HYPOGLYCEMIA Stop: 11/26/17 15:37 Dobutamine HCl/Dextrose (Dobutamine Premix 250 Mg/250 Ml) 250 mg in 250 mls @ 10.11 mls/hr IVC .Q24H JAMIE PRN Reason: 2.5 MCG/KG/MIN Stop: 11/26/17 17:01 Last Admin: 05/27/17 20:13 Dose: Not Given Insulin Human Lispro (Humalog) 0 units SQ HS JAMIE PRN Reason: Protocol Stop: 11/26/17 21:01 Last Admin: 05/27/17 21:08 Dose: Not Given Insulin Human Lispro (Humalog) 0 units SQ TIDAC JAMIE PRN Reason: Protocol Stop: 11/26/17 16:31 Last Admin: 05/28/17 09:25 Dose: Not Given Lisinopril (Zestril) 5 mg PO DAILY [facility] PRN Reason: Protocol Stop: 11/27/17 09:01 Last Admin: 05/28/17 09:55 Dose: Not Given Magnesium Oxide (Mag-Ox) 400 mg PO BID JAMIE PRN Reason: Protocol Stop: 11/26/17 21:01 Last Admin: 05/28/17 09:50 Dose: 400 mg Naloxone HCl (Narcan) 0.4 mg IVP Q2MIN PRN PRN Reason: Opioid Reversal Stop: 11/26/17 15:12 Omeprazole (Prilosec) 20 mg PO DAILY@0630 [facility] PRN Reason: Protocol Stop: 11/27/17 06:31 Last Admin: 05/28/17 05:50 Dose: 20 mg Ondansetron HCl (Zofran) 4 mg IVP Q8HR PRN PRN Reason: Nausea And Vomiting Stop: 11/26/17 15:12 Potassium Chloride (Potassium Chloride) 10 meq PO DAILY PRN PRN Reason: with lasix Simvastatin (Zocor) 10 mg PO DAILY [facility] Stop: 11/27/17 09:01 Last Admin: 05/28/17 09:50 Dose: 10 mg Laboratory Tests 05/28/17 07:10 Potassium 4.1 Creatinine 1.06 Magnesium 1.6 - Imaging and Cardiology Chest Xray: report reviewed Echo: report reviewed Cardiac cath: report reviewed - EKG Interpretation EKG results cardiology: other (Telemetry reviewed with average HR previous 12 hours noted to be 70, paced rhythm. PVCs noted. Short runs of non-sustained ventricular tachycardia noted with longest lasting 7 beats.) Consult Discharge Plan - Plan Referrals: Lamonte Lassiter DO [Primary Care Provider] - 06/07/17 10:30 am
--- NOTE | 2017-05-28 13:49 | Internal Med Progress Note ---
Date of Encounter: 05/28/17 Time of Encounter: 09:00 - Assessment and plan (1) Ventricular tachycardia Current Visit: Yes Status: Acute Assessment and plan: Patient has triple lead pacemaker/ICD due to history of complete heart block, severe cardiomyopathy, currently on cardiac transplant list at [facility]. Admitted due to ICD shocks due to sustained ventricular tachycardia. Cardiology consult and follow-up appreciated. Recommend to continue IV amiodarone drip, to increase amiodarone to 400 mg twice daily at discharge. Continue IV dobutamine infusion per home regimen. Outpatient cardiology follow-up. (2) Cardiomyopathy Current Visit: Yes Status: Chronic Assessment and plan: pacemaker-induced due to sustained tachycardia, per patient. Non-ischemic cardiomyopathy, being followed by cardiology at [facility]. Continue IV dobutamine infusion. Continue aspirin, statin, beta brianna and KENZIE inhibitor, Lasix as needed. 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 Blood sugars noted to be well controlled. Diabetic diet. Qualifiers: Diabetes mellitus type: type 2 Diabetes mellitus complication status: with kidney complications Diabetes mellitus complication detail: with chronic kidney disease Diabetes mellitus terminal system operator insulin use: without terminal system operator use Chronic kidney disease stage: stage 3 (moderate) Qualified Code(s): E11.22 - Type 2 diabetes mellitus with diabetic chronic kidney disease; N18.3 - Chronic kidney disease, stage 3 (moderate) (6) Dyslipidemia Current Visit: Yes Status: Chronic (7) Chronic kidney disease Current Visit: Yes Status: Chronic Qualifiers: Chronic kidney disease stage: stage 3 (moderate) Qualified Code(s): N18.3 - Chronic kidney disease, stage 3 (moderate) - Subjective Interval history: Reports feeling better. No chest pain, recurrence of palpitations or shortness of breath. On IV amiodarone drip, continuous dobutamine infusion. - Constitutional Vitals: Temp Pulse Resp BP Pulse Ox 98.2 F 73 16 110/65 97 05/28/17 11:13 05/28/17 11:25 05/28/17 11:13 05/28/17 12:26 05/28/17 11:13 General appearance: Present: cooperative, A&O X 3, answers questions appropriately - Respiratory Respiratory exam: Present: CTAB. Absent: accessory muscle use, rales, rhonchi, wheezes - Cardiovascular Cardiovascular exam: Present: RRR, +S1, +S2. Absent: diastolic murmur, gallop, rubs, systolic murmur - GI/Abdominal GI/Abdominal exam: Present: normal bowel sounds, soft, no peritoneal signs. Absent: distended, tenderness - Extremities Exam Extremities exam: Present: pedal edema (trace), warm, radial pulses palpable and symmetrical. Absent: calf tenderness, cyanotic - Neurological Exam Neurological exam: Present: CN II-XII intact, oriented X3, no focal deficits. Absent: pronater drift, facial droop, speech deficit Internal Medicine: Result - Labs CBC & Chem 7: 05/28/17 07:10 05/28/17 07:10 Consult Discharge Plan - Plan Referrals: Lamonte Lassiter DO [Primary Care Provider] - 06/07/17 10:30 am
[2017-05-29] MEDS: *HR* Heparin 5,000 UNIT/ML VIAL SQ SCH ×2 (05:56→13:38)
[2017-05-29 07:06] LABS: BUN/Creatinine Ratio 14 (6-26); Blood Urea Nitrogen 13 mg/dL (7-20); Calcium 8.1 mg/dL (8.6-10.8); Carbon Dioxide 25 mEq/L (19-29); Chloride 102 mEq/L (98-109); Glucose 96 mg/dL (70-99); Magnesium 1.5 mg/dL (1.6-2.6); Osmolality,Calculated 282 (280-300); Phosphorous 3.2 mg/dL (2.3-4.7); Potassium 3.6 mEq/L (3.5-4.5); Sodium 136 mEq/L (136-145); eGFR For African Americans > 60 (> 60); eGFR For Non-African Americans > 60 (> 60)
[2017-05-29] MEDS ORDERED: Magnesium Sulfate 2 GM in D5% in Water 100 ML IVPB ONE (08:16)
[2017-05-29] MEDS: Insulin LISPRO 300 UNITS/3 ML VIAL SQ SCH ×2 (08:20→11:22)
[2017-05-29] MEDS: Magnesium Oxide 400 MG TABLET PO SCH (08:23)
[2017-05-29] MEDS: Aspirin Enteric Coated 81 MG Tablet PO SCH (08:23)
[2017-05-29] MEDS ORDERED: *HR* Amiodarone 200 MG TABLET PO SCH (09:00)
--- NOTE | 2017-05-29 09:55 | Cardiology Progress Note ---
Date of Encounter: 05/29/17 Time of Encounter: 09:00 Assessment and Plan (1) Ventricular tachycardia Current Visit: Yes Status: Acute Per cardiology: -Has long standing history of Ventricular tachycardia. -Has ICD in place, device interrogated in ER with 2 VT episodes, attempted ATP but failed, and 2 ICD shocks since last interrogation. -ICD was interrogated in cardiology clinic with no events noted. -K and Mg within normal limits on admission. Mg 1.5 today, replaced per primary service. -Troponin negative. -ECG with paced rhythm, PVC noted. -On amiodarone drip. -No sustained VT noted per telemetry overnight. -Patient denies ICD shocks overnight. -Amiodarone drip stopped. Switched to 400mg po BID. -Cardiology will sign off and will follow in outpatient setting. Follow up set. (2) Nonischemic cardiomyopathy Current Visit: No Status: Chronic Per cardiology: -Known non-ishcemic cardiomyopathy. -Echo 11/2016 with LVEF 20%, severe global LV systolic dysufnction, LV mildly dilated, mild diastolic dysfunction, normal RV size and function, mild-moderate MR, moderate TR (may be underestimated), all avina hypokinetic. -LHC 04/2016 with 40% stenosis diagonal, 20% mid circumflex, 20% mid RCA. -On salbador inhibitor and dobutamine continuous infusion. -Follows with [facility] heart failure clinic and is awaiting heart transplant. -Patient states was placed on continuous dobutamine infusion at home. -Will continue to monitor in outpatient setting. Discussion w patient/family: The assessment and plan as outlined above was discussed with the patient who expressed understanding and agreement. All questions were answered. Thank you for involving us in the care of your patient. Please call with any questions. Discussed and reviewed with . Subjective Principal diagnosis: ventricular tachycardia Interval history: Patient denies ICD shocks overnight. Patient states she feels well this morning and is ready to go home. Objective Vital Signs, Last 4 Hours Temp Pulse Resp BP Pulse Ox 05/29/17 09:00 62 05/29/17 08:30 104/69 05/29/17 07:12 107/59 05/29/17 07:09 97.8 F 65 16 107/59 97 General: Conversant, No Apparent Distress HEENT: Atraumatic, Normocephaly, Mucus Membranes Moist Neck: No JVD, Normal carotid pulses Cardiac: Reg Rate and Rhythm, Normal S1 and S2, No Murmur Lungs: Normal Breath Sounds, No Wheeze, Rales, Rhonchi Neuro: Alert and responsive, No focal deficits noted Abdomen: Soft, Non-Tender Skin: No rashes noted on visualized skin Musculoskeletal: No Chest Wall Tenderness Extremities: No Clubbing, No Cyanosis, No Edema, Normal Pulses Results 05/28/17 07:10 05/29/17 06:34 Lab Results Active Medications Acetaminophen (Tylenol) 650 mg PO Q6HR PRN PRN Reason: Mild Pain (1-3) Stop: 11/26/17 15:12 Last Admin: 05/29/17 03:59 Dose: 650 mg Hydrocodone Bitart/Acetaminophen ([place] 5-325 Mg) 1 tab PO Q4HR PRN PRN Reason: Moderate Pain (4-6) Stop: 11/26/17 15:12 Amiodarone HCl (Cordarone) 400 mg PO BID [facility] Stop: 11/28/17 09:01 Last Admin: 05/29/17 08:23 Dose: 400 mg Aspirin (Aspirin Ec) 81 mg PO DAILY [facility] Stop: 11/27/17 09:01 Last Admin: 05/29/17 08:23 Dose: 81 mg Dextrose/Water (Dextrose 50% (Syg)) 25 ml IVP AD PRN PRN Reason: Hypoglycemia Stop: 11/26/17 15:37 Docusate Sodium (Colace) 100 mg PO BID PRN PRN Reason: Constipation Stop: 11/26/17 15:12 Ferrous Sulfate (Ferrous Sulfate) 325 mg PO DAILY [facility] Stop: 11/27/17 09:01 Last Admin: 05/29/17 08:23 Dose: 325 mg Furosemide (Lasix) 20 mg PO DAILY PRN PRN Reason: Edema Stop: 11/27/17 09:01 Glucagon (Glucagen) 1 mg IM ONCE PRN PRN Reason: Hypoglycemia Stop: 11/26/17 15:37 Glucose (Gluctose) 15 gm PO ONCE PRN PRN Reason: Hypoglycemia Stop: 11/26/17 15:37 Glucose (Gluctose) 30 gm PO ONCE PRN PRN Reason: Hypoglycemia Stop: 11/26/17 15:37 Heparin Sodium (Porcine) (Heparin) 5,000 unit SQ Q8HCO [facility] Stop: 11/26/17 22:01 Last Admin: 05/29/17 05:56 Dose: 5,000 unit Dextrose (Dextrose 5%) 1,000 mls @ 100 mls/hr IVC .Q10H PRN PRN Reason: HYPOGLYCEMIA Stop: 11/26/17 15:37 Dobutamine HCl/Dextrose (Dobutamine Premix 250 Mg/250 Ml) 250 mg in 250 mls @ 10.11 mls/hr IVC .Q24H JAMIE PRN Reason: 2.5 MCG/KG/MIN Stop: 11/26/17 17:01 Last Admin: 05/28/17 18:32 Dose: 2.5 mcg/kg/min, 10.11 mls/hr Ceftriaxone Sodium 1,000 mg/ (Dextrose) 100 mls @ 200 mls/hr IVPB Q24H [facility] Stop: 11/28/17 09:01 Last Infusion: 05/29/17 09:33 Dose: Infused Insulin Human Lispro (Humalog) 0 units SQ HS [facility] PRN Reason: Protocol Stop: 11/26/17 21:01 Last Admin: 05/28/17 21:05 Dose: Not Given Insulin Human Lispro (Humalog) 0 units SQ TIDAC [facility] PRN Reason: Protocol Stop: 11/26/17 16:31 Last Admin: 05/29/17 08:20 Dose: Not Given Lisinopril (Zestril) 5 mg PO DAILY [facility] PRN Reason: Protocol Stop: 11/27/17 09:01 Last Admin: 05/29/17 08:22 Dose: Not Given Magnesium Oxide (Mag-Ox) 400 mg PO BID [facility] PRN Reason: Protocol Stop: 11/26/17 21:01 Last Admin: 05/29/17 08:23 Dose: 400 mg Naloxone HCl (Narcan) 0.4 mg IVP Q2MIN PRN PRN Reason: Opioid Reversal Stop: 11/26/17 15:12 Omeprazole (Prilosec) 20 mg PO DAILY@0630 [facility] PRN Reason: Protocol Stop: 11/27/17 06:31 Last Admin: 05/29/17 05:56 Dose: 20 mg Ondansetron HCl (Zofran) 4 mg IVP Q8HR PRN PRN Reason: Nausea And Vomiting Stop: 11/26/17 15:12 Potassium Chloride (Potassium Chloride) 10 meq PO DAILY PRN PRN Reason: with lasix Simvastatin (Zocor) 10 mg PO DAILY JAMIE Stop: 11/27/17 09:01 Last Admin: 05/29/17 08:23 Dose: 10 mg - Imaging and Cardiology Chest Xray: report reviewed Echo: report reviewed Cardiac cath: report reviewed - EKG Interpretation EKG results cardiology: other (Telemetry reviewed with average HR 70, paced rhythm. PVCs noted. Short runs of non-sustained ventricular tachycardia noted, longest lasting 5 beats.) Consult Discharge Plan - Plan Referrals: Lamonte Lassiter DO [Primary Care Provider] - 06/07/17 10:30 am
[2017-05-29 11:23] VITALS: BP 102/66
--- NOTE | 2017-05-29 14:28 | Discharge Summary ---
Date of Encounter: 05/29/17 Time of Encounter: 10:00 - Discharge Diagnosis (1) Ventricular tachycardia Priority: Primary Status: Acute (2) Cardiomyopathy Priority: Secondary Status: Chronic Qualifiers: Cardiomyopathy type: other Qualified Code(s): I42.8 - Other cardiomyopathies (3) Pacemaker-dependent due to [place] cardiac rhythm insufficient to support life Priority: Secondary Status: Chronic (4) Hypertension Priority: Secondary Status: Chronic Qualifiers: Hypertension type: essential hypertension Qualified Code(s): I10 - Essential (primary) hypertension (5) Diabetes mellitus Priority: Secondary Status: Chronic Qualifiers: Diabetes mellitus type: type 2 Diabetes mellitus complication status: with kidney complications Diabetes mellitus complication detail: with chronic kidney disease Diabetes mellitus managing editor insulin use: without managing editor use Chronic kidney disease stage: stage 3 (moderate) Qualified Code(s): E11.22 - Type 2 diabetes mellitus with diabetic chronic kidney disease; N18.3 - Chronic kidney disease, stage 3 (moderate) (6) Dyslipidemia Priority: Secondary Status: Chronic (7) Chronic kidney disease Priority: Secondary Status: Chronic Qualifiers: Chronic kidney disease stage: stage 3 (moderate) Qualified Code(s): N18.3 - Chronic kidney disease, stage 3 (moderate) - Discharge Medications Prescriptions: Amiodarone [Cordarone] 400 mg PO BID #60 tab Cephalexin [Keflex] 500 mg PO BID #10 capsule Home Medications: Dulaglutide [Trulicity] 0.5 mg SQ SA 04/19/16 [History] Aspirin [Lo-Dose Aspirin EC] 81 mg PO DAILY MDD ON HOLD 05/03/16 [History] Ferrous Sulfate [Iron] 325 mg PO DAILY 11/20/16 [History] Magnesium Oxide [Mag-Ox] 400 mg PO BID #30 tablet 11/24/16 [Rx] Furosemide [Lasix] 20 mg PO DAILY PRN 05/27/17 [History] Lisinopril [Zestril] 5 mg PO DAILY 05/27/17 [History] Potassium Chloride [K-Tab ER] 10 meq PO DAILY PRN 05/27/17 [History] Simvastatin [Zocor] 10 mg PO DAILY 05/27/17 [History] Amiodarone [Cordarone] 400 mg PO BID #60 tab 05/29/17 [Rx] Cephalexin [Keflex] 500 mg PO BID #10 capsule 05/29/17 [Rx] Allergies/Adverse Reactions: 3 Allergy/AdvReac Type Severity Reaction Status Date / Time No Known Allergies Allergy Verified 09/18/16 21:59 Date of admission: 05/28/17 07:30 Primary care physician: Lamonte Lassiter Discharging clinician: Citlalli Medina Anticipated date of discharge: 05/29/17 - Patient Status Disposition: Home, Self-Care Condition: Good Functional capacity at discharge: independent ambulation Overall status at discharge: patient is progressing back to baseline - Discharge Instructions Follow Up With: Lamonte Lassiter DO [Primary Care Provider] - 06/07/17 10:30 am Additional Instructions: F/up with Cardiology as outpatient - Diet and Activity Activity: resume usual activities as tolerated Diet: diabetic diet, low fat, low cholesterol, low salt diet Hospital course: Ms. Lopez is a 56 year old female with history of complete heart block status post triple lead pacemaker and ICD placement along with pacemaker- induced cardiomyopathy, who is currently on cardiac transplant list with [facility], was admitted due to continuous discharge from her ICD. She was noted to have episodes of nonsustained ventricular tachycardia along with further ICD shocks while in the emergency room. Cardiology was consulted and she was started on IV amiodarone drip. Patient was also noted to be on continuous low dose dobutamine infusion via PICC line as an outpatient, which has been continued while in the hospital. Her symptoms improved since hospitalization and telemetry monitoring revealed isolated episode of nonsustained ventricular tachycardia overnight. Admitted on has been switched to oral form and the dose has been increased to 400 mg twice daily and she is currently cleared for discharge by cardiology, recommended to follow up as an outpatient. She was also noted to have UTI with urine culture growing pansensitive Escherichia coli and she is being discharged on oral antibiotics. - Time Spent with Patient Total time spent providing and/or coordinating discharge services: Greater than 30 minutes (40 min) - Constitutional Vitals: Temp Pulse Resp BP Pulse Ox 97.6 F 88 16 102/66 97 05/29/17 11:19 05/29/17 12:57 05/29/17 11:19 05/29/17 11:19 05/29/17 11:19 General appearance: Present: cooperative, A&O X 3, answers questions appropriately - Respiratory Respiratory exam: Present: CTAB. Absent: accessory muscle use, rales, rhonchi, wheezes - Cardiovascular Cardiovascular exam: Present: RRR, +S1, +S2. Absent: diastolic murmur, gallop, rubs, systolic murmur
--- NOTE | 2017-05-30 17:47 | Electrocardiograph Report ---
[place] [id number] Test Date: 2017-05-27 Pat Name: Cecy Lopez Department: 102 Room: 08 Gender: F [employer]: Tory : 1960 Requested By: Citlalli Medina Order Number: [id number] Reading MD: Tona Denise Measurements Intervals [place] Rate: 64 P: 32 HI: 142 QRS: 255 QRSD: 174 T: 152 QT: 512 QTc: 522 Interpretive Statements ELECTRONIC ATRIAL PACEMAKER ELECTRONIC VENTRICULAR PACEMAKER ABNORMAL RHYTHM ECG Electronically Signed On 05-30-2017 17:45:19 EDT by Tona Denise
== END 2017-05-29 15:48 | disposition home or self-care (01) | DRG 309 ==
LOC: 2NNU 08:57 → EMEROO 08:57 → 2NNU 15:06
PROVIDERS: ADMIT Internal Medicine; ATTEND Internal Medicine